=== PATIENT | female | born 1950 | race Caucasian/White ===

== ENCOUNTER → 2018-10-30 | Outpatient (CLI) | payer MEDICARE ==
[2018-10-30 17:13] LABS: Albumin 4.3 g/dL (3.80-4.90); Albumin/Globulin Ratio 2.26 (1.60-3.17); Anion Gap 11.4 mmol/L (4.00-12.00); Calcium 9.3 mg/dL (8.7-10.3); Carbon Dioxide 28.6 mmol/L (21.6-31.8); Globulin 1.9 g/dL (1.6-3.3); LDL Cholesterol,Calculated 118.6 mg/dL (0.0-131.0); Potassium 4.5 mmol/L (3.5-5.5); Total Bilirubin 0.4 mg/dL (0.2-1.2); Total Protein 6.2 g/dL (6.2-8.2); VLDL Calculation 30.4 mg/dL (5.00-40.00)
[2018-10-30 18:28] LABS: Thyroglobulin <0.20 ng/mL (1.60-59.90)
== END | disposition home or self-care (01) ==
LOC: LABWHC1 08:28
PROVIDERS: ATTEND Internal Medicine Endocrinology, Diabetes & Metabolism
DX: E11.65 Type 2 diabetes mellitus with hyperglycemia (principal); C73 Malignant neoplasm of thyroid gland
CPT/HCPCS: 36415; 80053; 80061; 82043; 82570; 84432; 84443; 86800

== ENCOUNTER → 2019-03-06 | Outpatient (CLI) | payer MEDICARE ==
[2019-03-06 16:46] LABS: African American GFR (CKD) 76.1 (60.0-200.0); Albumin 4.2 g/dL (3.80-4.90); Anion Gap 9.9 mmol/L (4.00-12.00); BUN/Creat Ratio 14.44 Ratio (12.00-20.00); Calcium 9.2 mg/dL (8.7-10.3); Carbon Dioxide 26.1 mmol/L (21.6-31.8); Globulin 2.1 g/dL (1.6-3.3); LDL Cholesterol,Calculated 105.8 mg/dL (0.0-131.0); Potassium 4.4 mmol/L (3.5-5.5); Total Bilirubin 0.4 mg/dL (0.3-1.2); Total Protein 6.3 g/dL (6.2-8.2); VLDL Calculation 39.2 mg/dL (5.00-40.00)
[2019-03-06 17:00] LABS: Hemoglobin A1C 7.2 % (4.0-6.0)
== END | disposition home or self-care (01) ==
LOC: LABWHC1 07:25
PROVIDERS: ATTEND Internal Medicine Endocrinology, Diabetes & Metabolism
DX: E11.65 Type 2 diabetes mellitus with hyperglycemia (principal); C73 Malignant neoplasm of thyroid gland
CPT/HCPCS: 36415; 80053; 80061; 82043; 82570; 83036; 84443

== ENCOUNTER → 2019-08-03 | Outpatient (CLI) | payer MEDICARE ==
[2019-08-03 15:14] LABS: Basophils # (A) 0.1 k/uL (0-0.2); Basophils % (A) 1 %; Eosinophils # (A) 0.2 k/uL (0-0.7); Eosinophils % (A) 3 %; HCT 42.3 % (34.0-46.0); HGB 14.4 gm/dL (11.4-16.0); Lymphocytes # (A) 1.3 k/uL (1.0-4.8); Lymphocytes % (A) 24 %; MCH 30.2 pg (25.0-35.0); MCHC 34.1 g/dL (31.0-37.0); MCV 88.7 fL (80.0-100.0); Mean Platelet Volume 8.3; Monocytes # (A) 0.3 k/uL (0-1.0); Monocytes % (A) 6 %; Neutrophils # (A) 3.5 k/uL (1.3-7.7); Neutrophils % (A) 64 %; Platelet Count 197 k/uL (150-450); RBC 4.77 m/uL (3.80-5.40); RDW 13.1 % (11.5-15.5); WBC 5.5 k/uL (3.8-10.6)
[2019-08-03 16:06] LABS: Erythrocyte Sedimentation Rate 13 mm/hr (0-20)
[2019-08-03 18:40] LABS: African American GFR (CKD) 76.1 (60.0-200.0); Albumin 4.3 g/dL (3.80-4.90); Albumin/Globulin Ratio 2.26 (1.60-3.17); Anion Gap 9.2 mmol/L (4.00-12.00); BUN/Creat Ratio 11.11 Ratio (12.00-20.00); C Reactive Protein 0.4 mg/dL (0.0-0.8); Carbon Dioxide 29.8 mmol/L (21.6-31.8); Globulin 1.9 g/dL (1.6-3.3); Potassium 4.4 mmol/L (3.5-5.5); Total Bilirubin 0.3 mg/dL (0.3-1.2); Total Protein 6.2 g/dL (6.2-8.2)
[2019-08-03 18:58] LABS: Cancer Antigen 19-9 44.2 U/mL (0.0-34.9)
[2019-08-03 19:21] LABS: Gliadin AB IgA, Deaminated NEGATIVE (NEGATIVE); Gliadin AB IgA, Unit <0.2 U/mL; Gliadin AB IgG, Deaminated NEGATIVE (NEGATIVE)
== END | disposition home or self-care (01) ==
LOC: LABWHC1 14:26
PROVIDERS: ATTEND Nurse Practitioner
DX: K52.9 Noninfective gastroenteritis and colitis, unspecified (principal); K86.2 Cyst of pancreas
CPT/HCPCS: 36415; 80053; 83516; 85025; 85652; 86140; 86301

== ENCOUNTER → 2019-08-20 | Outpatient (CLI) | payer MEDICARE ==
[2019-08-20 12:30] LABS: Albumin 4.2 g/dL (3.5-5.0); Calcium 9.3 mg/dL (8.4-10.2); Potassium 4.3 mmol/L (3.5-5.1); Total Bilirubin 0.6 mg/dL (0.2-1.3); Total Protein 6.8 g/dL (6.3-8.2)
--- NOTE | 2019-08-20 13:22 | US ---
EXAMINATION TYPE: US thyroid st tissue head/neck DATE OF EXAM: 08/20/2019 COMPARISON: NONE CLINICAL HISTORY: C73 MALIGNANT NEOPLASM OF THYROID GLAND. Total thyroidectomy with radiation 2013 pe r patient GLAND SIZE: Right Lobe: No thyroid tissue seen Left Lobe: No thyroid tissue seen Bilateral neck scanned: no evidence of lymphadenopathy. No suspicious recurrent tissue or adenopathy identified on images saved. IMPRESSION: As above.
[2019-08-20 22:33] LABS: Hemoglobin A1C 7.7 % (4.0-6.0)
== END | disposition home or self-care (01) ==
LOC: RADUSWWP 12:09
PROVIDERS: ATTEND Internal Medicine Endocrinology, Diabetes & Metabolism
DX: C73 Malignant neoplasm of thyroid gland (principal); E11.65 Type 2 diabetes mellitus with hyperglycemia; K76.89 Other specified diseases of liver
CPT/HCPCS: 36415; 76536; 80053; 80061; 82043; 82570; 83036; 84432; 84443; 86800

== ENCOUNTER → 2019-08-20 | Outpatient (CLI) | payer MEDICARE ==
--- NOTE | 2019-08-20 13:21 | US ---
EXAMINATION TYPE: US liver DATE OF EXAM: 08/20/2019 COMPARISON: NONE CLINICAL HISTORY: K76.89 LIVER CYST. Patient stated has elevated CA199 and fatty liver; prior thyroid CA too EXAM MEASUREMENTS: Liver Length: 14.80 cm Gallbladder Wall: 0.25 cm CBD: 0.40 cm Right Kidney: 9.8 x 5.0 x 5.3 cm Pancreas: hyperechoic with mid and tail obscured by overlying bowel gas Liver: Poor penetration due to large body habitus Gallbladder: non mobile shadowing stone =1.7 x 1.5 x 1.0cm Evidence for sonographic Strong's sign: no CBD: wnl Right Kidney: No hydronephrosis or masses seen Suboptimal evaluation of pancreas on images saved. Suboptimal evaluation of the liver. Visualized por tions are heterogeneously hyperechoic. Evaluation for focal masses suboptimal due to the heterogeneit y. Gallbladder is seen without shadowing gallstone. IMPRESSION: Suboptimal study with suspected diffuse fatty infiltration of liver. Gallstone without se condary ultrasound evidence for acute cholecystitis. If concern for focal intrahepatic masses further investigation with liver protocol contrast-enhanced CT or MRI would be advised
== END | disposition home or self-care (01) ==
LOC: RADUSWWP 12:07
PROVIDERS: ATTEND Internal Medicine Gastroenterology
DX: K80.20 Calculus of gallbladder without cholecystitis without obstruction (principal)
CPT/HCPCS: 76705

== ENCOUNTER → 2019-09-18 | Outpatient (CLI) | payer MEDICARE ==
--- NOTE | 2019-09-18 07:59 | US ---
EXAMINATION TYPE: US duplex aorta DATE OF EXAM: 09/18/2019 COMPARISON: NONE CLINICAL HISTORY: R93.1 ABN FINDINGS ON DIAGNOSTIC IMAGES OF HEART AND CORONAR. HT 5'5 and [id number] EXAM MEASUREMENTS: Abdominal Aorta: Proximal: 2.5cm both A/P and Transverse Mid: 1.8 by 1.9cm Transverse Distal: 1.6 by 2.1cm Transverse Bifurcation: not seen due to overlying bowel gas Slightly suboptimal study as the abdominal aorta is not successfully visualized through bifurcation. IMPRESSION: Visualized portion of the aorta shows no greater than 3.0 cm AAA.
== END | disposition home or self-care (01) ==
LOC: RADUSWWP 07:02
PROVIDERS: ATTEND Family Medicine
DX: I71.4 Abdominal aortic aneurysm, without rupture (principal)
CPT/HCPCS: 93979

== ENCOUNTER 2019-11-01 09:47 | Day surgery (SDC) | payer MEDICARE ==
--- NOTE | 2019-11-01 09:21 | P.GSHP ---
History of Present Illness H&P Date: 11/01/19 CHIEF COMPLAINT: Cholecystitis HISTORY OF PRESENT ILLNESS: The patient is a 69-year-old female who presents with history of epigastric including right upper quadrant abdominal pain. She underwent diagnostic studies for her gallbladder. Separately her clinical picture was consistent with cholecystitis. Now she presents for surgical intervention. PAST MEDICAL HISTORY: Please see list PAST SURGICAL HISTORY: Please see list MEDICATIONS: Please see list ALLERGIES: Please see list SOCIAL HISTORY: Please see list FAMILY HISTORY: Please see list REVIEW OF ORGAN SYSTEMS: Additionally reports: CONSTITUTIONAL: No fevers or chills. No recent weight loss. EYES: Denies any trouble with vision. No glasses. HEENT: No difficulties with hearing. No nosebleeds. No difficulty swallowing. RESPIRATORY: Denies pneumonia. Denies any troubles with breathing or dyspnea on exertion. CARDIOVASCULAR: Denies any chest pain, palpitations, or recent heart attacks. GASTROINTESTINAL: Denies fatty food intolerance. Has chronic diarrhea. GENITOURINARY: Denies any blood in urine or increased urinary frequency. NEUROLOGICAL: Denies any numbness or tingling along the distal extremities. No seizure disorders or headaches. MUSCULOSKELETAL: Denies any back pain, stiffness or joint arthritis. SKIN: No current skin cancer. No rash. PSYCHIATRIC: Denies current depression or suicidal thoughts. ENDOCRINE: Has thyroid disorders. Has blood sugar glucose intolerance. HEME/LYMPHATIC: Denies any lumps and bumps around the neck. No recent deep venous thrombosis. ALLERGY/IMMUNOLOGY: No immunoglobulin therapy. No immune deficiencies. BREAST: Denies current breast lumps, pain or nipple discharge. PHYSICAL EXAM: Patient is a 68-year-old female. CONSTITUTIONAL: Well developed and in no acute distress. Vitals reviewed. EYES: Conjuctivae without sclera icterus. Pupils are equally round and reactive to light. Extraocular movements grossly intact. HEAD, EARS, NOSE, THROAT: Moist buccal mucosa. Head is atraumatic, normocephalic. Hears conversational speech. No nasal drainage. NECK: Supple. No JV distention. No thyroidomegaly. RESPIRATORY: Non-labored respirations and equal bilateral excursions. No gross wheezes. CARDIOVASCULAR: Regular rate and rhythm. Extremities without moderate edema. Palpable 2+ radial pulses. LYMPH: No neck lymphadenopathy. No axillary lymphadenopathy. MUSCULOSKELETAL:Nail and fingers with good capillary refill. SKIN: Warm and well perfused with good skin turgor. NEUROLOGIC: Cranial nerves I through XII grossly intact. Sensation upper and extremities intact. No focal or lateralizing signs. PSYCH: Appropriate affect. Alert and oriented to person, place and time. Displays appropriate insight. Abdomen: Protuberant and soft. STUDIES: Ultrasound of the gallbladder independently reviewed demonstrating severe fatty liver disease including singular large gallstone. LABS: Hemoglobin A1C identified 7.7. ASSESSMENT: 1. Epigastric and right upper quadrant abdominal pain 2. Chronic cholecystitis 3. Symptomatic gallstones. PLAN: 1. Will need a robotic cholecystectomy possible open. Benefits and risks were described. 2. Heparin for DVT prophylaxis 5000 units. 3. Antibiotic prophylaxis. Past Medical History Past Medical History: Diabetes Mellitus, Pneumonia, Thyroid Disorder Additional Past Medical History / Comment(s): CURRENT: ABD PAIN, DIARRHEA, CONSTPATION History of Any Multi-Drug Resistant Organisms: None Reported Past Surgical History: Hysterectomy Additional Past Surgical History / Comment(s): 2013 TOTAL THYROIDECTOMY WITH RADIATION. Past Anesthesia/Blood Transfusion Reactions: No Reported Reaction, Family History of Problems w/ Anesthesia Additional Past Anesthesia/Blood Transfusion Reaction / Comment(s): PATIENT STATES HER SISTER IS HYPERALLERGIC TO ALL CHEMICALS AND ANESTHESIA. STATES HER SISTER IS CONFINED TO HER HOME DUE TO THE SENSITIVITIES. SHE DID NOT KNOW WHAT MALIGNANT HYPERTHERMIA. Past Psychological History: No Psychological Hx Reported Smoking Status: Current every day smoker Past Alcohol Use History: Rare Additional Past Alcohol Use History / Comment(s): 1PP WEEK. HAS SMOKED FOR 5 YRS. Past Drug Use History: None Reported - Past Family History Mother Family Medical History: Cancer Additional Family Medical History / Comment(s): LUNG CANCER Medications and Allergies Home Medications Medication Instructions Recorded Confirmed Type Cholecalciferol [Vitamin D3] 800 unit PO DAILY 10/30/19 10/30/19 History Dulaglutide [Trulicity] 1 dose SQ WE 10/30/19 10/30/19 History Insulin Glargine,Hum.rec.anlog 43 unit SQ HS 10/30/19 10/30/19 History [Toujeo Solostar] Levothyroxine Sodium [Synthroid] 100 mcg PO QAM 10/30/19 10/30/19 History Multivitamins, Thera [Multivitamin 1 tab PO DAILY 10/30/19 10/30/19 History (formulary)] Allergies Allergy/AdvReac Type Severity Reaction Status Date / Time Penicillins Allergy Swelling Verified 10/30/19 14:57
[~2019-11-01 09:47] MED LIST: CLINDAMYCIN 900 MG in DEXTROSE 5% IN WATER 50 ML IVPB ONE; GENTAMICIN 360 MG in SODIUM CHLORIDE 0.9% 100 ML IVPB ONE; HYDROmorphone 0.5 MG/0.5 ML SYRINGE IVP PRN; INDOCYANINE GREEN 25 MG VIAL IV STA; LIDOCAINE 1% 20 ML VIAL (10MG/ML) FOR IV START INTRADERMA PRN; MIDAZOLAM 2 MG/2 ML VIAL IV PRN; fentaNYL (PF) 50 MCG/ML 2 ML AMP IV PRN
[2019-11-01] MEDS: LACTATED RINGERS 1,000 ML IV SCH (11:15)
[2019-11-01 11:21] LABS: Glucose,Whole Blood 153 mg/dL (75-99)
[2019-11-01] MEDS: ACETAMINOPHEN TAB 500 MG TAB PO STA (11:37)
[2019-11-01] MEDS: GABAPENTIN 300 MG CAP PO STA (11:37)
[2019-11-01] MEDS: DEXAMETHASONE SOD PHOSPHATE 10 MG/ML 1 ML VIAL IV ONE (11:40)
[2019-11-01] MEDS: ONDANSETRON 4 MG/2 ML VIAL IVP ONE ×2 (11:40→16:43)
[2019-11-01] MEDS: HEPARIN SODIUM,PORCINE 5,000 UNIT/ML 1 ML VIAL SQ ONE (11:47)
[2019-11-01 11:56] LABS: Basophils # (A) 0.1 k/uL (0-0.2); Basophils % (A) 2 %; Eosinophils # (A) 0.1 k/uL (0-0.7); Eosinophils % (A) 2 %; HGB 14.6 gm/dL (11.4-16.0); Lymphocytes # (A) 1.2 k/uL (1.0-4.8); Lymphocytes % (A) 22 %; MCH 30.5 pg (25.0-35.0); MCHC 33.9 g/dL (31.0-37.0); Mean Platelet Volume 9.9; Monocytes # (A) 0.3 k/uL (0-1.0); Monocytes % (A) 5 %; Neutrophils # (A) 3.5 k/uL (1.3-7.7); Neutrophils % (A) 67 %; Platelet Count 179 k/uL (150-450); RBC 4.77 m/uL (3.80-5.40); RDW 12.9 % (11.5-15.5); WBC 5.2 k/uL (3.8-10.6)
[2019-11-01 12:04] LABS: ALT 19 U/L (4-34); AST 27 U/L (14-36); African American GFR (CKD) >90 (>60 ml/min/1.73 sqM); Albumin 3.9 g/dL (3.5-5.0); Alkaline Phosphatase 72 U/L (38-126); Anion Gap 8 mmol/L; Blood Urea Nitrogen 12 mg/dL (7-17); Calcium 9.1 mg/dL (8.4-10.2); Carbon Dioxide 25 mmol/L (22-30); Chloride 107 mmol/L (98-107); Glucose 154 mg/dL (74-99); Non-African American GFR(CKD) 89 (>60 ml/min/1.73 sqM); Potassium 4.7 mmol/L (3.5-5.1); Sodium 140 mmol/L (137-145); Total Bilirubin 0.6 mg/dL (0.2-1.3); Total Protein 6.7 g/dL (6.3-8.2)
[2019-11-01] MEDS ORDERED: MIDAZOLAM 2 MG/2 ML VIAL ONE (13:07)
[2019-11-01] MEDS ORDERED: GLYCOPYRROLATE 0.2 MG/ML 2 ML VIAL ONE (13:07)
[2019-11-01] MEDS ORDERED: ROCURONIUM BROMIDE 10 MG/ML 5 ML VIAL IV ONE (13:07)
[2019-11-01] MEDS ORDERED: fentaNYL (PF) 50 MCG/ML 2 ML AMP ONE (13:07)
[2019-11-01] MEDS ORDERED: LIDOCAINE 1% INJ 10MG/ML (20 ML MDV) ONE (13:07)
[2019-11-01] MEDS ORDERED: NEOSTIGMINE 1 MG/ML 10 ML VIAL ONE (13:07)
[2019-11-01] MEDS ORDERED: SUCCINYLCHOLINE CHLORIDE 100 MG/5 ML SYR IV ONE (13:07)
[2019-11-01] MEDS ORDERED: PROPOFOL 10 MG/ML 20 ML VIAL IV ONE (13:07)
[2019-11-01 13:11] LABS: Glucose,Whole Blood 133 mg/dL (75-99)
[2019-11-01] MEDS ORDERED: LIDOCAINE 1%-EPI 1:100,000 20 ML VIAL SQ ONE ×2 (13:36→13:48)
[2019-11-01] MEDS ORDERED: LACTATED RINGERS 1,000 ML IV ONE ×2 (14:48→18:47)
--- NOTE | 2019-11-01 15:59 | P.OP ---
Date of Procedure: 11/01/19 Description of Procedure: SURGEON: MAY DOUGLAS MD PREOPERATIVE DIAGNOSES: 1. Symptomatic gallstones 2. Fatty liver disease 3. Diabetes type 2, insulin-dependent 4. History of thyroid cancer 5. History of persistently elevated CA-19-9 6. Morbid obesity due to excess calories, BMI 35.9 POSTOPERATIVE DIAGNOSES: 1. Symptomatic gallstones 2. Fatty liver disease 3. Diabetes type 2, insulin-dependent 4. History of thyroid cancer 5. History of persistently elevated CA-19-9 6. Morbid obesity due to excess calories, BMI 35.9 7. Cystic lesion right inferior lateral lobe liver 2 x 3 cm, unknown malignant potential 8. Pericholecystic adhesions greater omentum to gallbladder 9. Hepatomegaly with fatty liver disease OPERATION: 1. Robotic-assisted da Dena Xi laparoscopic cholecystectomy, multiport with FIREFLY 1. Robotic-assisted da Dena Xi laparoscopic lysis of adhesions over 30 minutes ESTIMATED BLOOD LOSS: 20 mL. SPECIMENS REMOVED: Gallbladder. COMPLICATIONS: None. OPERATIVE FINDINGS: 1. Dense adhesions throughout the gallbladder body included infundibulum. 2. Cystic lesion with foci highly suspicious for metastatic disease 2 x 3 cm right inferior lateral border of gallbladder 3. Assess surgery duct of Luschka identified and clipped 4. Hepatomegaly with fatty liver disease 5. Console time 67 minutes INDICATIONS: The patient is a 69-year-old female who presents with cholelcystitis. Surgical intervention with a laparoscopic cholecystectomy was described at length including injury to the biliary tree, bleeding, infection, need for further surgery. Informed consent was obtained. Robotic assisted laparoscopic approach was described. Benefits and risks of the procedure including but not limited to bleeding, infection, injury to the biliary tree was described. Informed consent was obtained. DESCRIPTION OF PROCEDURE: Patient was brought to the operating room, placed in supine position. After general induction, the abdomen had been prepped and draped in standard sterile fashion. The robotic da Dena XI system was primed. After a timeout protocol was performed, the patient had been prepped and draped in standard sterile fashion. The patient was injected with indocyanine green. A 5 mm 0 degrees laparoscopic trocar entry was performed along the left upper quadrant. The abdomen insufflated to 15 mmHg pressure which was tolerated well. Diagnostic laparoscopy demonstrated no injury to bowel viscera or mesentery. The liver surface was unremarkable. Next, two 8 mm robotic ports were placed along the right upper abdomen. The camera 8-mm port was maintained along the epigastrium. Another 8 mm port was placed along the left upper abdominal wall after exchanging the 5 mm port. Please note that the ports were placed at least 10 to 15 cm away from the target anatomy of the gallbladder. The robot was docked along the left lateral abdomen. The patient was repositioned in reverse Trendelenburg position. Using a grasper for arm 3, a grasper for arm 4, including hook cautery for arm 1, the robotic system was docked and primed as described. Instruments were interchanged by the occupational therapist assistants including hook cautery, Bovie cautery and clip appliers. I had sat at the console. Dense peritoneal adhesions gallbladder to the infundibulum was identified securing the view of the gallbladder. Lysis of adhesions using hook cautery over 30 minutes was used to free the gallbladder from surrounding tissue. At the right inferior lateral aspect to the gallbladder cystic lesion of at least 2 x 3 cm with a foci of questionable metastatic disease was identified. Separately, dense adhesions about the infundibulum was found. A dome down technique for cholecystectomy was performed to avoid injuries to the cystic structures. Once freed the gallbladder fundus was maneuvered. The common bile duct was visualized using indocyanine green and appeared somewhat dilated. The gallbladder fundus was retracted over the dome of the liver. Attention was brought to the infundibulum which was gently retracted in the inferior lateral approach. Using a grasper, the cystic duct was carefully skeletonized. FIREFLY was used to identify the cystic artery and cystic structures. A critical view of safety was obtained. Large PLASTIC clips were used throughout the entire case. Using a clip patient account specialist 2 clips were placed proximally, and 1 clip was placed between the infundibulum and cystic duct and divided using cautery. Next, the cystic artery was similarly clipped and cauterized. An accessary duct of Luschka was identified with bile emanating from the lumen and clipped. Electro-Bovie cautery was used to remove the gallbladder from the hepatic fossa. Hemostasis was checked and found to be adequate. The robot was undocked. I re-scrubbed into the case. Using a 10 mm Endo Catch bag via the left upper quadrant incision, the specimen was removed from the abdominal cavity. All pneumoperitoneum instruments were evacuated from the abdominal cavity. The incisions were reapproximated using 4-0 Monocryl in an interrupted subcuticular fashion. Fascial defects were less than 8 mm in size. Please note along the trocar sites, local anesthetic was placed as a field block prior to insertion of all instruments. Liquid glue was applied to the skin. At the end of the procedure needle, sponge, and instrument count had been verified correct by the chemical laboratory technician. The patient was transferred to postanesthesia care unit in stable condition. Intraoperative films were shared with the patient's family who were very pleased with the level of care. With findings of liver lesion, additional workup including tumor markers were sent with additional results of gallbladder pathology pending. Plan - Discharge Summary Discharge Rx Participant: No New Discharge Prescriptions: No Action Multivitamins, Thera [Multivitamin (formulary)] 1 tab PO DAILY Cholecalciferol [Vitamin D3] 800 unit PO DAILY Insulin Glargine,Hum.rec.anlog [Toujeo Solostar] 31 unit SQ HS Dulaglutide [Trulicity] 1 dose SQ WE Levothyroxine Sodium [Synthroid] 100 mcg PO QAM Discharge Medication List Cholecalciferol [Vitamin D3] 800 unit PO DAILY 10/30/19 [History] Dulaglutide [Trulicity] 1 dose SQ WE 10/30/19 [History] Insulin Glargine,Hum.rec.anlog [Toujeo Solostar] 31 unit SQ HS 10/30/19 [History] Levothyroxine Sodium [Synthroid] 100 mcg PO QAM 10/30/19 [History] Multivitamins, Thera [Multivitamin (formulary)] 1 tab PO DAILY 10/30/19 [History] Follow up Appointment(s)/Referral(s): May Douglas MD [STAFF PHYSICIAN] - 11/06/19 Patient Instructions/Handouts: Laparoscopic Cholecystectomy (DC) Activity/Diet/Wound Care/Special Instructions: No lifting over 10 pounds in 2 weeks until Nov 15. May shower. No bath tub soaks for two weeks until Nov 15 Diet as tolerated. Use Tylenol and ibuprofen or Aleve scheduled for the next 24-48 hours for best pain relief. Use ice along incisions for the today to prevent swelling. Discharge Disposition: HOME SELF-CARE
[2019-11-01 16:31] LABS: Glucose,Whole Blood 214 mg/dL (75-99)
[2019-11-01] MEDS ORDERED: INSULIN ASPART (NovoLOG) 100 UNIT/ML VIAL SQ ONE (16:43)
[2019-11-01] MEDS ORDERED: SIMETHICONE 40 MG/0.6 ML DROPS 2,000 MG/30 ML BOTTLE PO ONE (17:29)
[2019-11-01 17:39] LABS: Glucose,Whole Blood 217 mg/dL (75-99)
[2019-11-01 18:35] LABS: Carcinoembryonic Antigen 2.2 ng/mL (0.0-4.9)
[2019-11-01 19:03] LABS: Alpha Fetoprotein, Tumor Mkr <2.5 ng/mL (0.0-7.9)
[2019-11-01 19:04] LABS: Cancer Antigen 19-9 47.1 U/mL (0.0-34.9)
[2019-11-01] MEDS ORDERED: NALOXONE 0.4 MG/ML 1 ML VIAL IV PRN (19:09)
[2019-11-01] MEDS ORDERED: METOCLOPRAMIDE 5 MG/ML 2 ML VIAL IVP PRN (19:09)
[2019-11-01] MEDS ORDERED: ACETAMINOPHEN TAB 325 MG TAB PO PRN (19:09)
--- NOTE | 2019-11-01 19:26 | P.PN ---
Progress Note - Text Progress Note Date: 11/01/19 Notified by recovery that patient has moderate to severe generalized weakness. Overnight observation requested per anesthesia.
[2019-11-01 20:39] LABS: Glucose,Whole Blood 227 mg/dL (75-99)
[2019-11-01] MEDS ORDERED: INSULIN DETEMIR (LEVEMIR) 100 UNIT/ML SYR SQ SCH (21:00)
[2019-11-01] MEDS: BENZOCAINE/MENTHOL LOZENG 1 EACH LOZENGE MUCOUS MEM PRN (21:43)
[2019-11-01] MEDS: KETOROLAC 30 MG/ML 1 ML VIAL IVP SCH (21:44)
[2019-11-01 22:57] VITALS: RESP 18
[2019-11-02] MEDS: HEPARIN SODIUM,PORCINE 5,000 UNIT/ML 1 ML VIAL SQ ONE (00:30)
[2019-11-02] MEDS: ACETAMINOPHEN TAB 500 MG TAB PO STA (00:31)
[2019-11-02] MEDS: DEXAMETHASONE SOD PHOSPHATE 10 MG/ML 1 ML VIAL IV ONE (00:31)
[2019-11-02] MEDS: GABAPENTIN 300 MG CAP PO STA (00:32)
[2019-11-02 00:52] LABS: Glucose,Whole Blood 158 mg/dL (75-99)
[2019-11-02] MEDS: INSULIN ASPART (NovoLOG) 100 UNIT/ML VIAL SQ SCH ×2 (01:21→05:49)
[2019-11-02] MEDS: KETOROLAC 30 MG/ML 1 ML VIAL IVP SCH ×2 (01:21→11:25)
[2019-11-02] MEDS: LACTATED RINGERS 1,000 ML IV SCH (05:47)
[2019-11-02 05:51] LABS: Glucose,Whole Blood 126 mg/dL (75-99)
[2019-11-02] MEDS: BENZOCAINE/MENTHOL LOZENG 1 EACH LOZENGE MUCOUS MEM PRN (05:56)
[2019-11-02] MEDS ORDERED: LEVOTHYROXINE 100 MCG TAB PO SCH (06:30)
[2019-11-02 06:55] LABS: Glucose,Whole Blood 120 mg/dL (75-99)
[2019-11-02 08:18] LABS: Albumin 3.5 g/dL (3.5-5.0); Calcium 8.8 mg/dL (8.4-10.2); Magnesium 1.7 mg/dL (1.6-2.3); Potassium 4.6 mmol/L (3.5-5.1); Total Bilirubin 0.7 mg/dL (0.2-1.3); Total Protein 6.1 g/dL (6.3-8.2)
--- NOTE | 2019-11-02 09:17 | P.DS ---
Providers Expected date of discharge: 11/02/19 Attending physician: May Douglas Primary care physician: Raghu Arenas Hospital Course: 69-year-old female who underwent robotic-assisted laparoscopic cholecystectomy and lysis of adhesions with Dr. Douglas on 11/01/2019. Patient was having some gait instability and weakness postoperatively and was admitted overnight for observation. Patient reports she is ambulating this morning without difficulty. She reports no further weakness. Pain is controlled on oral medications. Vital signs are stable. She is tolerating diet. She is stable for discharge home today. Please see EMR for further hospital course details. Discharge Diagnosis 1. Symptomatic gallstones 2. Fatty liver disease 3. Diabetes type 2, insulin-dependent 4. History of thyroid cancer 5. History of persistently elevated CA-19-9 6. Morbid obesity due to excess calories, BMI 35.9 7. Cystic lesion right inferior lateral lobe liver 2 x 3 cm, unknown malignant potential 8. Pericholecystic adhesions greater omentum to gallbladder 9. Hepatomegaly with fatty liver disease Nurse practitioner note has been reviewed by physician. Signing provider agrees with the documented findings, assessment, and plan of care. Plan - Discharge Summary Discharge Rx Participant: No New Discharge Prescriptions: New Naproxen 500 mg PO Q6HR PRN #20 tablet PRN Reason: Pain Acetaminophen Tab [Tylenol Tab] 1,000 mg PO Q6HR PRN #30 tablet Continue Multivitamins, Thera [Multivitamin (formulary)] 1 tab PO DAILY Cholecalciferol [Vitamin D3] 800 unit PO DAILY Insulin Glargine,Hum.rec.anlog [Jan Solostsaroj] 31 unit SQ HS Dulaglutide [Trulicity] 1 dose SQ WE Levothyroxine Sodium [Synthroid] 100 mcg PO QAM Discharge Medication List Cholecalciferol [Vitamin D3] 800 unit PO DAILY 10/30/19 [History] Dulaglutide [Trulicity] 1 dose SQ WE 10/30/19 [History] Insulin Glargine,Hum.rec.anlog [Toujeo Solostar] 31 unit SQ HS 10/30/19 [History] Levothyroxine Sodium [Synthroid] 100 mcg PO QAM 10/30/19 [History] Multivitamins, Thera [Multivitamin (formulary)] 1 tab PO DAILY 10/30/19 [History] Acetaminophen Tab [Tylenol Tab] 1,000 mg PO Q6HR PRN #30 tablet 11/01/19 [Rx] Naproxen 500 mg PO Q6HR PRN #20 tablet 11/01/19 [Rx] Follow up Appointment(s)/Referral(s): May Douglas MD [STAFF PHYSICIAN] - 11/06/19 (PLEASE CALL FOR APPOINTMENT TIME. OFFICE CLOSED AT TIME OF DISCHARGE) Patient Instructions/Handouts: *Surgery [facility] - (Anesthesia) Discharge Instructions Outpatient Surgery, Laparoscopic Cholecystectomy (DC) Activity/Diet/Wound Care/Special Instructions: No lifting over 10 pounds in 2 weeks until Nov 15. May shower. No bath tub soaks for two weeks until Nov 15 Diet as tolerated. Use Tylenol and ibuprofen or Aleve scheduled for the next 24-48 hours for best pain relief. Use ice along incisions for the today to prevent swelling. Discharge Disposition: HOME SELF-CARE
[2019-11-02 10:05] VITALS: BP 136/61; PULSE 78; TEMP 98.4
[2019-11-07] MEDS ORDERED: DULAGLUTIDE SQ SCH (12:00)
== END 2019-11-02 11:16 | disposition home or self-care (01) ==
LOC: OR 09:47 → 4SSUR 18:29 → OR 11-02 11:16
PROVIDERS: ATTEND Surgery Plastic and Reconstructive Surgery
DX: K80.12 Calculus of gallbladder with acute and chronic cholecystitis without obstruction (principal); K66.0 Peritoneal adhesions (postprocedural) (postinfection); E11.9 Type 2 diabetes mellitus without complications; E07.9 Disorder of thyroid, unspecified; Z90.710 Acquired absence of both cervix and uterus; E89.0 Postprocedural hypothyroidism; Z92.3 Personal history of irradiation; F17.210 Nicotine dependence, cigarettes, uncomplicated; K76.89 Other specified diseases of liver; K76.0 Fatty (change of) liver, not elsewhere classified; Z85.850 Personal history of malignant neoplasm of thyroid; R97.8 Other abnormal tumor markers; E66.01 Morbid (severe) obesity due to excess calories; Z68.35 Body mass index [BMI] 35.0-35.9, adult; Z80.1 Family history of malignant neoplasm of trachea, bronchus and lung; Z79.890 Hormone replacement therapy; Z79.4 Long term (current) use of insulin; Z79.899 Other long term (current) drug therapy; Z88.0 Allergy status to penicillin
CPT/HCPCS: 88304; 80053 ×2; 86304; 82378; 83735; 85025; 82105; 86301; 47562; 49329; J2250; J1644; J1100; J2710; J2405; J2001; J3010; J1885 ×2; J1580; J0330; J2704

== ENCOUNTER → 2019-11-13 | Outpatient (CLI) | payer MEDICARE ==
[2019-11-13 13:47] LABS: ALT 23 U/L (4-34); AST 27 U/L (14-36); African American GFR (CKD) >90 (>60 ml/min/1.73 sqM); Albumin 4.4 g/dL (3.5-5.0); Alkaline Phosphatase 89 U/L (38-126); Anion Gap 12 mmol/L; Blood Urea Nitrogen 12 mg/dL (7-17); Calcium 9.3 mg/dL (8.4-10.2); Carbon Dioxide 26 mmol/L (22-30); Chloride 105 mmol/L (98-107); Glucose 174 mg/dL (74-99); Non-African American GFR(CKD) 85 (>60 ml/min/1.73 sqM); Potassium 4.4 mmol/L (3.5-5.1); Sodium 143 mmol/L (137-145); Total Bilirubin 0.3 mg/dL (0.2-1.3); Total Protein 7.7 g/dL (6.3-8.2)
--- NOTE | 2019-11-14 13:26 | CT ---
EXAMINATION TYPE: CT abdomen pelvis w con DATE OF EXAM: 11/13/2019 COMPARISON: NONE HISTORY: 69-year-old female diverticulitis of intestine TECHNIQUE: Contiguous axial scanning of the abdomen and pelvis following administration of 100 ml Iso riley 300 IV contrast. Delayed images through the kidneys and coronal/sagittal reconstructions perform ed. CT DLP: 1677 mGycm Automated exposure control for dose reduction was used. FINDINGS: Heart is normal size without pericardial effusion. Lung bases clear without pleural effusion. The liver is borderline enlarged at 17.7 cm. Scattered subcentimeter cysts are present. However, sarah beth tional multilocular cystic areas are present, approximately 3 dominant such lesions within the right liver lobe measuring up to 3.4 cm. Portal venous system is patent. No biliary ductal dilatation. Gallbladder surgically absent. Adrenal glands, right kidney, spleen, and pancreas appear within normal limits. A benign 2.6 cm cortical cyst lateral upper pole left kidney. Moderate atherosclerotic calcifications throughout the abdominal aorta without aneurysm. No dilated small bowel, free fluid, or free air. No mesenteric or retroperitoneal lymphadenopathy. Normal appendix. There is moderate stool burden. Some mild circumferential wall thickening along segm ents of the transverse colon. Proximal to mid sigmoid diverticulosis. Redundant sigmoid colon. No per icolonic inflammatory change. Some mildly prominent fluid-filled small bowel loops in the lower abdomen and pelvis. Bladder is urine distended. Uterus surgically absent. Both ovaries are visualized. Tubal ligation cli ps are noted. No abnormal fluid collection in the pelvis or pelvic lymphadenopathy seen. Bones: Hypertrophic facet arthropathy lower lumbar spine with grade 1 anterolisthesis at L4-L5. IMPRESSION: 1. MODERATE STOOL BURDEN AND REDUNDANT SIGMOID COLON WITH PROXIMAL TO MID SIGMOID DIVERTICULOSIS. NO EVIDENCE FOR ACUTE DIVERTICULITIS. 2. SEGMENTS OF MILD CIRCUMFERENTIAL WALL THICKENING ALONG THE TRANSVERSE COLON. ADDITIONALLY, SOME SC OMINENT FLUID-FILLED SMALL BOWEL LOOPS IN LOWER ABDOMEN AND PELVIS. CORRELATE FOR POSSIBLE MILD ENTER OCOLITIS. 3. MULTILOCULAR CYSTIC LESIONS IN THE RIGHT LIVER LOBE, APPROXIMATELY 3 DOMINANT SUCH LESIONS MEASURI NG UP TO 3.4 CM. INCIDENTAL COMPLEX CYSTS ARE POSSIBLE. NO SURROUNDING PARENCHYMAL HYPEREMIA TO HELP SUPPORT LIVER ABSCESSES. CLINICALLY CORRELATE. THE MULTIPLICITY ARGUES AGAINST BILIARY CYSTADENOMA. 3 -6 MONTH FOLLOW-UP CAN BE PERFORMED TO REASSESS.
== END | disposition home or self-care (01) ==
LOC: RADCTMAIN 12:32
PROVIDERS: ATTEND Surgery Plastic and Reconstructive Surgery
DX: K57.30 Diverticulosis of large intestine without perforation or abscess without bleeding (principal); K63.89 Other specified diseases of intestine; K76.89 Other specified diseases of liver; R79.89 Other specified abnormal findings of blood chemistry
CPT/HCPCS: 80053; 74177; 36415; Q9967

== ENCOUNTER 2019-11-26 08:56 | Day surgery (SDC) | payer MEDICARE ==
[2019-11-26] MEDS ORDERED: ALPRAZolam 0.25 MG TAB PO STA (09:45)
[2019-11-26 09:53] LABS: Mean Platelet Volume 9.7; Platelet Count 200 k/uL (150-450)
[2019-11-26 10:02] LABS: INR 0.9 (<1.2); Prothrombin Time 9.8 sec (9.0-12.0)
[2019-11-26 10:33] VITALS: BP 134/74; PULSE 74; RESP 18; TEMP 98
--- NOTE | 2019-11-26 11:39 | US ---
Discontinued liver biopsy in interventional radiology consult history: Liver mass Comparison to prior CT 11/13/2019. Following discussion with the patient, patient describes abnormality upper tumor marker dating severa l years prior. Patient also notes that previous abdominal CT imaging has been performed at an outside institution. Real-time ultrasound does not show patient's previous identified CT abnormalities. Physical exam shows a patient in no apparent distress. Abdomen is nontender and soft, scars are noted from prior cholecystectomy. IMPRESSION: No liver biopsy to be performed at this time. Following review of patient's prior imaging and comparison to recent exam performed at this institution, additional recommendation to be perform ed. Patient is in agreement with the plan.
== END 2019-11-26 10:45 | disposition home or self-care (01) ==
LOC: RADPROMAIN 08:56
PROVIDERS: ATTEND Surgery Plastic and Reconstructive Surgery
DX: K76.89 Other specified diseases of liver (principal); Z53.8 Procedure and treatment not carried out for other reasons; Z88.0 Allergy status to penicillin; Z88.8 Allergy status to other drugs, medicaments and biological substances
CPT/HCPCS: 36415; 76705; 82947; 85049; 85610

== ENCOUNTER → 2020-02-28 | Outpatient (CLI) | payer MEDICARE | END | disposition home or self-care (01) | LOC: RADMAMWWP 11:06 | PROVIDERS: ATTEND Family Medicine | DX: Z53.9 Procedure and treatment not carried out, unspecified reason (principal) ==

== ENCOUNTER → 2020-02-28 | Outpatient (CLI) | payer MEDICARE ==
[2020-02-28 12:21] LABS: African American GFR (CKD) >90 (>60 ml/min/1.73 sqM); Blood Urea Nitrogen 13 mg/dL (7-17); Non-African American GFR(CKD) 88 (>60 ml/min/1.73 sqM)
--- NOTE | 2020-02-28 14:03 | CT ---
EXAMINATION TYPE: CT abdomen pelvis w con DATE OF EXAM: 02/28/2020 COMPARISON: 11/13/2019 and 03/10/2012 HISTORY: 69-year-old female other specified diseases of liver, K76.89, followup abnormal prior ct TECHNIQUE: Contiguous axial scanning of the abdomen and pelvis following administration of 100 ml Iso riley 300 IV contrast. Delayed images through the kidneys and coronal/sagittal reconstructions perform ed. CT DLP: 1750.3 mGycm Automated exposure control for dose reduction was used. FINDINGS: Heart normal size without pericardial effusion. Coronary artery calcifications are present along with mitral annular calcifications. Strandy atelectasis or scarring at the lung bases. Liver enlarged at 19.2 cm. Redemonstrated multiple hypodense lesions, the largest showing a complex, multilocular or septated appearance measuring up to 4.0 cm posterior inferior right liver lobe but ma ny very small and subcentimeter. These show no interval change from 11/13/2019 over the course of appr oximately 4 months. Portal venous system is patent. No biliary ductal dilatation. Gallbladder surgically absent. Adrenal glands and right kidney, spleen, and pancreas appear within normal limits. A 2.8 cm lateral left renal cyst may be minimally larger from 2.6 cm, previously. No dilated small bowel, free fluid, or free air. No mesenteric or retroperitoneal lymphadenopathy. Moderate arthroscopic calcifications of the abdominal aorta without aneurysm. Normal appendix. Oral contrast progressed to the hepatic flexure. There is moderate stool burden. Pro ximal to mid sigmoid diverticulosis. No pericolonic inflammatory change. Bladder partially distended. Bilateral tubal ligation clips and small ovaries are visualized. Pelvic phleboliths. Uterus surgically absent. Pelvic floor relaxation. No abnormal fluid collection in the p aviva or pelvic lymphadenopathy. Bones: Mild degenerative change in both hips. Hypertrophic facet arthropathy especially lower lumbar spine with grade 1 anterolisthesis L4-L5. IMPRESSION: 1. STABLE MULTIPLE HYPODENSE LESIONS WITHIN THE LIVER, THE LARGEST OF WHICH HAVE A COMPLEX, MULTILOCU LAR OR SEPTATED APPEARANCE MEASURING UP TO 4 CM BUT MANY BEING VERY SMALL AND SUBCENTIMETER. STABILIT Y BACK TO EVEN 2011 SUGGESTS A BENIGN ETIOLOGY, LIKELY MULTIPLE HEPATIC CYSTS. 2. SIGMOID DIVERTICULOSIS AND PELVIC FLOOR RELAXATION.
== END | disposition home or self-care (01) ==
LOC: RADCTMAIN 11:39
PROVIDERS: ATTEND Family Medicine
DX: K57.30 Diverticulosis of large intestine without perforation or abscess without bleeding (principal)
CPT/HCPCS: 82565; 84520; 74177; 36415; Q9967

== ENCOUNTER 2020-05-07 06:30 | Day surgery (SDC) | payer MEDICARE ==
[2020-05-05 10:46] VITALS: BMI 34.9
[~2020-05-07 06:30] MED LIST changes: -CLINDAMYCIN 900 MG in DEXTROSE 5% IN WATER 50 ML IVPB ONE; -GENTAMICIN 360 MG in SODIUM CHLORIDE 0.9% 100 ML IVPB ONE; -HYDROmorphone 0.5 MG/0.5 ML SYRINGE IVP PRN; -INDOCYANINE GREEN 25 MG VIAL IV STA; +LACTATED RINGERS 1,000 ML IV SCH; -LIDOCAINE 1% 20 ML VIAL (10MG/ML) FOR IV START INTRADERMA PRN; -MIDAZOLAM 2 MG/2 ML VIAL IV PRN; -fentaNYL (PF) 50 MCG/ML 2 ML AMP IV PRN
[2020-05-07] MEDS ORDERED: LIDOCAINE 1% (10MG/ML) FOR IV START INTRADERMA ONE (07:05)
[2020-05-07] MEDS ORDERED: LACTATED RINGERS 1,000 ML IV ONE (07:05)
[2020-05-07 07:13] LABS: Glucose,Whole Blood 172 mg/dL (75-99)
[2020-05-07] MEDS ORDERED: PROPOFOL 10 MG/ML 20 ML VIAL IV ONE (08:01)
[2020-05-07 08:10] VITALS: TEMP 97.8
--- NOTE | 2020-05-07 08:24 | P.PCN ---
Date of Procedure: 05/07/20 Procedure(s) Performed: BRIEF HISTORY: Patient is a 69-year-old pleasant female scheduled for an elective colonoscopy as a part of screening for colorectal neoplasia. PROCEDURE PERFORMED: Colonoscopy with snare polypectomy and biopsy. PREOPERATIVE DIAGNOSIS: Sreening for colon cancer. IV sedation per Anesthesia. PROCEDURE: After informed consent was obtained, the patient, was brought into the endoscopy unit. IV sedation was administered by Anesthesia under continuous monitoring. Digital rectal examination was normal. Initially the Olympus CF-160 flexible video colonoscope was then inserted in the rectum, gradually advanced into the cecum without any difficulty. Careful examination was performed as the scope was gradually being withdrawn. Ileocecal valve and the appendiceal orifice were visualized and appeared normal. Prep was excellent. Mucosa of the cecum, appeared normal. In the ascending colon there was a 3 mm sessile polyp that was removed by cold biopsy. In the descending colon there was a 7 mm polyp that was removed by snare polypectomy. In the sigmoid colon there was a 6 mm polyp removed by snare polypectomy and in the proximal rectum there was a 5 mm polyp removed by snare polypectomy. Rest of the ascending colon, transverse colon, descending colon, sigmoid colon, and rectum appeared normal. Retroflexion was performed in the rectum and no lesions were seen. The patient tolerated the procedure well. IMPRESSION: 3 mm sessile ascending colon polyp status post removal by cold biopsy 7 mm descending colon polyp status post snare polypectomy 5-6 mm; sigmoid polyp status post polypectomy 5 mm rectal polyp status post polypectomy RECOMMENDATIONS: Findings of this examination were discussed with the patient as well as her family. She was advised to follow with the biopsy result. If the biopsy shows an adenoma she can have a repeat colonoscopy in 3 years.
[2020-05-07 08:27] VITALS: RESP 16
[2020-05-07 08:37] VITALS: BP 135/74; PULSE 68
== END 2020-05-07 08:54 ==
LOC: ORWHC2ENDO 06:30
PROVIDERS: ATTEND Internal Medicine Gastroenterology
DX: Z12.11 Encounter for screening for malignant neoplasm of colon (principal); D12.2 Benign neoplasm of ascending colon; D12.5 Benign neoplasm of sigmoid colon; D12.8 Benign neoplasm of rectum; E11.9 Type 2 diabetes mellitus without complications; G47.33 Obstructive sleep apnea (adult) (pediatric); E89.0 Postprocedural hypothyroidism; F17.210 Nicotine dependence, cigarettes, uncomplicated; Z88.8 Allergy status to other drugs, medicaments and biological substances; Z88.0 Allergy status to penicillin; Z79.890 Hormone replacement therapy; Z79.4 Long term (current) use of insulin; Z91.19 Patient's noncompliance with other medical treatment and regimen; Z90.49 Acquired absence of other specified parts of digestive tract; Z90.710 Acquired absence of both cervix and uterus; Z86.69 Personal history of other diseases of the nervous system and sense organs; Z98.890 Other specified postprocedural states
CPT/HCPCS: 88305; 45380; 45385; J2704

== ENCOUNTER → 2020-08-04 | Outpatient (CLI) | payer MEDICARE ==
[2020-08-04 18:45] LABS: African American GFR (CKD) 66.6 (60.0-200.0); Albumin 4.5 g/dL (3.80-4.90); Albumin/Globulin Ratio 2.05 (1.60-3.17); Anion Gap 7.1 mmol/L (4.00-12.00); Calcium 9.7 mg/dL (8.7-10.3); Carbon Dioxide 31.9 mmol/L (21.6-31.8); Chol/HDL Ratio 5.16; Globulin 2.2 g/dL (1.6-3.3); LDL Cholesterol,Calculated 148.2 mg/dL (0.0-131.0); Non-African American GFR(CKD) 57.4 (60.0-200.0); Potassium 4.6 mmol/L (3.5-5.5); Total Bilirubin 0.5 mg/dL (0.3-1.2); Total Protein 6.7 g/dL (6.2-8.2); VLDL Calculation 30.8 mg/dL (5.00-40.00)
[2020-08-04 20:46] LABS: Hemoglobin A1C 10.2 % (4.0-6.0)
[2020-08-05 01:00] LABS: Urine Creatinine 193.2 mg/dL
== END | disposition home or self-care (01) ==
LOC: LABWHC1 10:42
PROVIDERS: ATTEND Internal Medicine Endocrinology, Diabetes & Metabolism
DX: C73 Malignant neoplasm of thyroid gland (principal); E11.65 Type 2 diabetes mellitus with hyperglycemia
CPT/HCPCS: 36415; 80053; 80061; 82043; 82570; 83036; 84432; 84443; 86800

== ENCOUNTER → 2020-09-08 | Outpatient (CLI) | payer MEDICARE ==
--- NOTE | 2020-09-08 08:46 | BD ---
EXAMINATION TYPE: Axial Bone Density DATE OF EXAM: 09/08/2020 COMPARISON: NONE CLINICAL HISTORY: Height: 64 Weight: 217.3 FRAX RISK QUESTIONS: Alcohol (3 or more units per day): no Family History (Parent hip fracture): no Glucocorticoids (More than 3mos): no (Ex: prednisone, prednisolone, methylprednisolone, dexamethasone, and hydrocortisone). History of Fracture in Adulthood: no Secondary Osteoporosis: 1. Type 1 Diabetes: no 2. Hyperthyroidism: no 3. Menopause before 45: yes 4. Malnutrition: no 5. Chronic liver disease: yes Rheumatoid Arthritis: no Current Tobacco Use: yes RISK FACTORS HISTORY OF: Family History of Osteoporosis: no Active: yes Diet low in dairy products/other sources of calcium: no Postmenopausal woman: early age 40 Lost more than 2 inches in height since high school: no MEDICATIONS: cholesterol meds , diabetic meds Thyroid Medications: synthroid How Lon years Additional History: pt has had thyroid cancer EXAM MEASUREMENTS: Bone mineral densitometry was performed using the [employer] System. Bone mineral density as measured about the Lumbar spine is: ----- L1-L4(G/cm2): 1.058 T Score Values are as follows: ----- L2: -1.4 ----- L3: -1.4 ----- L4: -0.2 ----- L1-L4: -1.0 Bone mineral density : baseline Bone mineral density about the R hip (g/cm2): 0.826 Bone mineral density about the L hip (g/cm2): 0.950 T Score values are as follows: -----R Neck: -1.5 -----L Neck: -0.6 -----R Total: -0.9 -----L Total: -0.3 Bone mineral density : baseline IMPRESSION: No evidence for osteoporosis or osteopenia. NOTE: T-SCORE=SD OF THE YOUNG ADULT MEAN.
== END | disposition home or self-care (01) ==
LOC: RADBDWWP 07:00
PROVIDERS: ATTEND Family Medicine
DX: Z78.0 Asymptomatic menopausal state (principal)
CPT/HCPCS: 77080

== ENCOUNTER → 2020-10-20 | Outpatient (CLI) | payer MEDICARE ==
--- NOTE | 2020-10-24 12:15 | MM ---
Reason for exam: screening (asymptomatic). Last mammogram was performed 9 years and 11 months ago. History: Patient is postmenopausal, history of colon cancer, and history of other cancer. Benign stereotactic core biopsy of the right breast, October 31, 1998. Core biopsy of the right breast. Physical Findings: A clinical breast exam by your physician is recommended on an annual basis and results should be correlated with mammographic findings. MG 3D Screening Mammo W/Cad Bilateral CC and MLO view(s) were taken. Prior study comparison: April 28, 2017, mammogram, performed at [facility]. August 27, 2016, mammogram, performed at [facility]. August 11, 2016, mammogram, performed at [facility]. There are scattered fibroglandular densities. There are benign appearing round calcifications bilaterally. Previous mammotome biopsy in the right breast. Asymmetric breast tissue left posterior breast, stable. There is no discrete abnormality. Benign bilateral axillary lymph nodes redemonstrated. ASSESSMENT: Benign, BI-RAD 2 RECOMMENDATION: Routine screening mammogram of both breasts in 1 year.
== END | disposition home or self-care (01) ==
LOC: RADMAMWWP 07:54
PROVIDERS: ATTEND Family Medicine
DX: Z12.31 Encounter for screening mammogram for malignant neoplasm of breast (principal)
CPT/HCPCS: 77063; 77067

== ENCOUNTER → 2020-11-19 | Outpatient (CLI) | payer MEDICARE ==
[2020-11-19 09:29] LABS: ALT 28 U/L (4-34); AST 30 U/L (14-36); African American GFR (CKD) >90 (>60 ml/min/1.73 sqM); Albumin 4.2 g/dL (3.5-5.0); Alkaline Phosphatase 65 U/L (38-126); Anion Gap 7 mmol/L; Blood Urea Nitrogen 17 mg/dL (7-17); Calcium 9.5 mg/dL (8.4-10.2); Carbon Dioxide 32 mmol/L (22-30); Chloride 101 mmol/L (98-107); Cholesterol 201 mg/dL (<200); Glucose 247 mg/dL (74-99); HDL Cholesterol 37 mg/dL (40-60); LDL Cholesterol,Calculated 129 mg/dL (0-99); Non-African American GFR(CKD) 88 (>60 ml/min/1.73 sqM); Potassium 4.9 mmol/L (3.5-5.1); Sodium 140 mmol/L (137-145); Total Bilirubin 0.6 mg/dL (0.2-1.3); Triglycerides 177 mg/dL (<150)
--- NOTE | 2020-11-19 09:38 | US ---
EXAMINATION TYPE: US thyroid st tissue head/neck DATE OF EXAM: 11/19/2020 COMPARISON: US 08/20/19 CLINICAL HISTORY: 70-year-old female C73 Malignant neoplasm of thyroid. Thyroid surgically excised du e to thyroid cancer. TECHNIQUE: Multiple sonographic images of the thyroid gland are obtained. FINDINGS: GLAND SIZE: Right Lobe Not seen Left Lobe not seen. NODULES RIGHT: # of nodules measured on right: 0 LEFT: # of nodules measured on left: 0 ISTHMUS: # of nodules measured in the isthmus: 0 Beam Sealer notes: Bilateral neck scanned, no evidence of lymphadenopathy. No thyroid tissue seen IMPRESSION: No residual or abnormal tissue identified within the thyroidectomy bed.
[2020-11-19 15:26] LABS: Urine Creatinine 197.3 mg/dL
[2020-11-19 19:05] LABS: Hemoglobin A1C 9.9 % (4.0-6.0)
== END ==
LOC: RADUSWWP 07:37
PROVIDERS: ATTEND Internal Medicine Endocrinology, Diabetes & Metabolism
DX: C73 Malignant neoplasm of thyroid gland (principal); E11.65 Type 2 diabetes mellitus with hyperglycemia
CPT/HCPCS: 76536; 80053; 80061; 82043; 82570; 83036; 84432; 84443; 86800

== ENCOUNTER → 2021-03-14 | Outpatient (CLI) | payer MEDICARE ==
[2021-03-14 12:39] LABS: African American GFR (CKD) 75.1 (60.0-200.0); Albumin 4.4 g/dL (3.80-4.90); Albumin/Globulin Ratio 1.91 (1.60-3.17); Anion Gap 6.2 mmol/L (4.00-12.00); BUN/Creat Ratio 16.67 Ratio (12.00-20.00); Calcium 9.7 mg/dL (8.7-10.3); Carbon Dioxide 31.8 mmol/L (21.6-31.8); Globulin 2.3 g/dL (1.6-3.3); Non-African American GFR(CKD) 64.8 (60.0-200.0); Total Bilirubin 0.4 mg/dL (0.2-1.2); Total Protein 6.7 g/dL (6.2-8.2)
[2021-03-14 12:40] LABS: Chol/HDL Ratio 5.41; LDL Cholesterol,Calculated 134.2 mg/dL (0.0-131.0); VLDL Calculation 37.8 mg/dL (5.00-40.00)
[2021-03-14 13:52] LABS: Hemoglobin A1C 9.4 % (4.0-6.0)
== END | disposition home or self-care (01) ==
LOC: LABWHC1 08:20
PROVIDERS: ATTEND Internal Medicine Endocrinology, Diabetes & Metabolism
DX: C73 Malignant neoplasm of thyroid gland (principal); E11.65 Type 2 diabetes mellitus with hyperglycemia
CPT/HCPCS: 36415; 80053; 80061; 83036; 84443

== ENCOUNTER → 2021-07-06 | Outpatient (CLI) | payer MEDICARE ==
[2021-07-06 17:54] LABS: African American GFR (CKD) 75.3 (60.0-200.0); Albumin 4.4 g/dL (3.8-4.9); Albumin/Globulin Ratio 1.85 (1.60-3.17); Anion Gap 14.3 mmol/L (4.00-12.00); BUN/Creat Ratio 10.24 Ratio (12.00-20.00); Blood Urea Nitrogen 9.2 mg/dL (9.0-27.0); Calcium 9.6 mg/dL (8.7-10.3); Carbon Dioxide 25.1 mmol/L (21.6-31.8); Chol/HDL Ratio 5.1 Ratio; Globulin 2.4 g/dL (1.6-3.3); HDL Cholesterol 44.1 mg/dL (40.00-60.00); LDL Cholesterol,Calculated 147.5 mg/dL (0.0-131.0); Potassium 4.2 mmol/L (3.5-5.5); Total Bilirubin 0.3 mg/dL (0.30-1.20); Total Protein 6.8 g/dL (6.2-8.2); VLDL Calculation 33.4 mg/dL (5.00-40.00)
== END | disposition home or self-care (01) ==
LOC: LABWHC1 10:15
PROVIDERS: ATTEND Internal Medicine Endocrinology, Diabetes & Metabolism
DX: C73 Malignant neoplasm of thyroid gland (principal); E11.65 Type 2 diabetes mellitus with hyperglycemia
CPT/HCPCS: 36415; 80053; 80061; 82043; 82570; 84432; 84443; 86800

== ENCOUNTER → 2021-09-03 | Outpatient (CLI) | payer MEDICARE | END | disposition home or self-care (01) | LOC: LABWHC1 14:29 | PROVIDERS: ATTEND Family Medicine | DX: R00.2 Palpitations (principal) | CPT/HCPCS: 36415; 93005 ==

== ENCOUNTER → 2021-10-23 | Outpatient (CLI) | payer MEDICARE ==
[2021-10-23 15:30] LABS: ALT 29 U/L (8-44); AST 24 U/L (13-35); African American GFR (CKD) 71.5 (60.0-200.0); Albumin 4.2 g/dL (3.8-4.9); Albumin/Globulin Ratio 1.55 (1.60-3.17); Alkaline Phosphatase 65 U/L (41-126); BUN/Creat Ratio 10.94 Ratio (12.00-20.00); Blood Urea Nitrogen 10.2 mg/dL (9.0-27.0); Calcium 9.7 mg/dL (8.7-10.3); Carbon Dioxide 24.4 mmol/L (20.0-27.5); Chloride 106 mmol/L (96-109); Chol/HDL Ratio 4.36 Ratio; Globulin 2.7 g/dL (1.6-3.3); Glucose 259 mg/dL (70-110); LDL Cholesterol,Calculated 106.3 mg/dL (0.0-131.0); Non-African American GFR(CKD) 61.7 (60.0-200.0); Potassium 4.7 mmol/L (3.5-5.5); Sodium 142 mmol/L (135-145); Total Bilirubin <0.20 mg/dL (0.30-1.20)
== END | disposition home or self-care (01) ==
LOC: LABWHC1 08:17
PROVIDERS: ATTEND Internal Medicine Endocrinology, Diabetes & Metabolism
DX: C73 Malignant neoplasm of thyroid gland (principal); E11.65 Type 2 diabetes mellitus with hyperglycemia
CPT/HCPCS: 36415; 80053; 80061; 83036; 84432; 84443; 86800

== ENCOUNTER → 2021-12-09 | Outpatient (CLI) | payer MEDICARE ==
--- NOTE | 2021-12-09 11:20 | US ---
EXAMINATION TYPE: US abdomen complete DATE OF EXAM: 12/09/2021 COMPARISON: CT & US CLINICAL HISTORY: K76.89 DISEASE OF LIVER. Abnormal prior CT, liver disease, GB removed EXAM MEASUREMENTS: Liver Length: 18.5 cm CBD: 0.6 cm Spleen: 8.6 cm Right Kidney: 11.2 x 4.4 x 5.0 cm Left Kidney: 10.9 x 6.1 x 4.7 cm Morbidly obese pt, difficult to scan/visualize Pancreas: obscured by overlying bowel gas Liver: Upper limits of normal for size, difficult to penetrate, lesions visualized on CT could not b e appreciated by ultrasound due to large pt body habitus and pt unable to tolerate probe pressure Gallbladder: Surgically absent Evidence for sonographic Strong's sign: No CBD: wnl Spleen: wnl Right Kidney: Upper pole gassed out, otherwise appeared wnl Left Kidney: Cyst upper pole= 3.6 x 2.5 x 2.8 cm, no evidence of hydro, lower pole gassed out Upper IVC: difficult to visualize due to large pt body habitus Abd Aorta: obscured by overlying bowel gas, and large pt body habitus IMPRESSION: Technically difficult ultrasound. Enlarged liver with hyperechoic parenchyma suggestive of hepatic st eatosis. The described lesions on the previous CT scan are not appreciated by this limited ultrasound . Further MRI assessment can be considered. Simple left renal cyst without suspicious feature.
== END | disposition home or self-care (01) ==
LOC: RADUSWWP 10:24
PROVIDERS: ATTEND Family Medicine
DX: R16.0 Hepatomegaly, not elsewhere classified (principal); N28.1 Cyst of kidney, acquired; K76.89 Other specified diseases of liver
CPT/HCPCS: 76700

== ENCOUNTER → 2022-01-08 | Outpatient (CLI) | payer MEDICARE ==
--- NOTE | 2022-01-11 11:23 | MM ---
Reason for exam: screening (asymptomatic). Last mammogram was performed 1 year and 3 months ago. History: Patient is postmenopausal and history of other cancer. Benign stereotactic core biopsy of the right breast, October 31, 1998. Core biopsy of the right breast. Physical Findings: A clinical breast exam by your physician is recommended on an annual basis and results should be correlated with mammographic findings. MG 3D Screening Mammo W/Cad Bilateral CC and MLO view(s) were taken. Prior study comparison: October 20, 2020, bilateral MG 3d screening mammo w/cad. April 28, 2017, mammogram, performed at [facility]. There are scattered fibroglandular densities. Previous mammotome biopsy in the right breast. No significant changes when compared with prior studies. ASSESSMENT: Benign, BI-RAD 2 RECOMMENDATION: Routine screening mammogram of both breasts in 1 year.
== END | disposition home or self-care (01) ==
LOC: RADMAMWWP 13:22
PROVIDERS: ATTEND Family Medicine
DX: Z12.31 Encounter for screening mammogram for malignant neoplasm of breast (principal); Z78.0 Asymptomatic menopausal state
CPT/HCPCS: 77063; 77067

== ENCOUNTER → 2022-02-27 | Outpatient (CLI) | payer MEDICARE ==
[2022-02-27 16:40] LABS: ALT 24 U/L (8-44); AST 22 U/L (13-35); African American GFR (CKD) 66.7 (60.0-200.0); Albumin 4.4 g/dL (3.8-4.9); Albumin/Globulin Ratio 1.88 (1.60-3.17); Alkaline Phosphatase 65 U/L (41-126); BUN/Creat Ratio 12.56 Ratio (12.00-20.00); Blood Urea Nitrogen 12.4 mg/dL (9.0-27.0); Calcium 9.7 mg/dL (8.7-10.3); Carbon Dioxide 26.9 mmol/L (20.0-27.5); Chloride 106 mmol/L (96-109); Chol/HDL Ratio 3.85 Ratio; Globulin 2.3 g/dL (1.6-3.3); Glucose 90 mg/dL (70-110); LDL Cholesterol,Calculated 86.7 mg/dL (0.0-131.0); Non-African American GFR(CKD) 57.5 (60.0-200.0); Potassium 4.7 mmol/L (3.5-5.5); Sodium 143 mmol/L (135-145); Total Protein 6.7 g/dL (6.2-8.2)
== END | disposition home or self-care (01) ==
LOC: LABWHC1 10:34
PROVIDERS: ATTEND Internal Medicine Endocrinology, Diabetes & Metabolism
DX: C73 Malignant neoplasm of thyroid gland (principal); E11.65 Type 2 diabetes mellitus with hyperglycemia
CPT/HCPCS: 36415; 80053; 80061; 83036; 84432; 84443; 86800

== ENCOUNTER 2022-05-03 17:17 | Emergency (ER) | payer MEDICARE ==
[2022-05-03 17:20] VITALS: PULSE 87; TEMP 98.1
--- NOTE | 2022-05-03 17:31 | ED ---
General Adult HPI - General Chief complaint: Fall Stated complaint: fall, back injury Time Seen by Provider: 05/03/22 17:20 Source: patient, EMS, RN notes reviewed Mode of arrival: EMS Limitations: no limitations - History of Present Illness Initial comments: Patient is a pleasant 71-year-old female presenting to the emergency department with concerns with low back pain. Patient did have surgery 4 days ago. He should had lumbar fusion. Patient was discharged afternoon. Patient was going home and walking up a step she fell back. Patient landed on her lower back. Patient complains of increased lower back discomfort since that time. Patient did receive pain medication by EMS and symptoms are mild at this time. No loss of control of bowel or bladder. No weakness or loss of sensation. No other area of injury or concern. No head injury or loss of consciousness. - Related Data Home Medications Medication Instructions Recorded Confirmed Insulin Glargine,Hum.rec.anlog 48 unit SQ HS 10/30/19 03/30/21 [[place] Solostar] Multivitamins, Thera [Multivitamin 1 tab PO DAILY 10/30/19 03/30/21 (formulary)] Lactobacillus Acidophilus 1 each PO DAILY 11/15/19 03/30/21 [Acidophilus] Levothyroxine Sodium [Synthroid] 150 mcg PO DAILY 11/15/19 03/30/21 Ascorbic Acid [Vitamin C] 500 mg PO DAILY 05/05/20 03/30/21 Cholecalciferol [Vitamin D3 (25 2,000 unit PO DAILY 05/05/20 03/30/21 Mcg = 1000 Iu)] Zinc 50 mg PO DAILY 05/05/20 03/30/21 Insulin Aspart [NovoLOG] 20 units SQ AC-TID 03/30/21 03/30/21 Allergies Allergy/AdvReac Type Severity Reaction Status Date / Time Penicillins Allergy Swelling Verified 08/25/21 09:10 Review of Systems ROS Statement: Those systems with pertinent positive or pertinent negative responses have been documented in the HPI. ROS Other: All systems not noted in ROS Statement are negative. Constitutional: Denies: fever Eyes: Denies: eye pain ENT: Denies: ear pain Respiratory: Denies: cough Cardiovascular: Denies: chest pain Endocrine: Denies: fatigue Gastrointestinal: Denies: abdominal pain Genitourinary: Denies: dysuria Musculoskeletal: Reports: as per HPI Skin: Denies: rash Neurological: Denies: headache, weakness, numbness, paresthesias, confusion Past Medical History Past Medical History: Cancer, Diabetes Mellitus, Eye Disorder, Hearing Disorder / Deafness, Hyperlipidemia, Liver Disease, Thyroid Disorder Additional Past Medical History / Comment(s): Bilateral Cataracts, hearing loss left ear. Hx thyroid cancer with thyroidectomy and radiation, cysts on liver, non alcoholic fatty liver. History of Any Multi-Drug Resistant Organisms: None Reported Past Surgical History: Cholecystectomy, Hysterectomy, Orthopedic Surgery Additional Past Surgical History / Comment(s): Partial hysterctomy, right carpal tunnel surgery. Past Anesthesia/Blood Transfusion Reactions: Previous Problems w/ Anesthesia Additional Past Anesthesia/Blood Transfusion Reaction / Comment(s): Weakness, dizziness and unsteady gait post anesthesia. "sister allergic to alot of medications cannot have surgery" Smoking Status: Current every day smoker - Past Family History Father Family Medical History: Coronary Artery Disease (CAD), CVA/TIA, Myocardial Infarction ([place]) Additional Family Medical History / Comment(s): Heart surgery. Brain Tumor, non cancerous. Mother Family Medical History: Cancer Additional Family Medical History / Comment(s): Lung Disorder. General Exam Limitations: no limitations General appearance: alert, in no apparent distress Head exam: Present: atraumatic, normocephalic Eye exam: Present: normal appearance Neck exam: Present: normal inspection. Absent: tenderness Respiratory exam: Present: normal lung sounds bilaterally Cardiovascular Exam: Present: regular rate, normal rhythm Expanded Peripheral pulses: 2+: Dorsalis Pedis (R), Dorsalis Pedis (L) GI/Abdominal exam: Present: soft. Absent: distended, tenderness Extremities exam: Present: normal inspection. Absent: tenderness Back exam: Present: tenderness (Mild tenderness L3-L4 region midline) Neurological exam: Present: alert. Absent: motor sensory deficit Expanded Sensory exam: Lower Extremity Light Touch: Normal Motor strength exam: RLE: 5, LLE: 5 Psychiatric exam: Present: normal affect, normal mood Skin exam: Present: normal color Course Vital Signs 05/03/22 17:17 Temperature 98.1 F Pulse Rate 87 Respiratory 16 Rate Blood Pressure 174/61 O2 Sat by Pulse 91 L Oximetry Medical Decision Making - Medical Decision Making Patient reevaluated and updated. Patient states pain is fairly well controlled however is agreeable to a small dose of pain medication prior to discharge. - Radiology Data Radiology results: image reviewed (Lumbar films reveal no acute process) Disposition Clinical Impression: Fall, Lumbar contusion Disposition: HOME SELF-CARE Condition: Stable Instructions (If sedation given, give patient instructions): Fall Prevention (ED) Additional Instructions: Please call your back doctor tomorrow. Copy of x-rays provided. Please follow- up with back doctor and primary care physician in the next couple days for recheck. Return for weakness, loss of control of bowel or bladder, loss of sensation, worsening symptoms or other concerns. Is patient prescribed a controlled substance at d/c from ED?: No Referrals: Raghu Arenas MD [Primary Care Provider] - 1-2 days Time of Disposition: 18:39
--- NOTE | 2022-05-03 17:56 | XR ---
EXAMINATION TYPE: XR lumbar spine 2 or 3V DATE OF EXAM: 05/03/2022 COMPARISON: 09/22/2021 HISTORY: Fall. Postop. Pain. TECHNIQUE: FINDINGS: There is posterior rods and screws fusing the lumbar spine from L3 to S1. There is a mild t horacolumbar levoscoliosis. There is multilevel laminectomy defect. No compression fracture. No sublu xation. Sacroiliac joints are intact. Abdominal aorta is atheromatous. IMPRESSION: Posterior fusion surgery. There is some improvement in the subluxation deformity at L4-5 compared to the old exam. No fracture seen.
[2022-05-03] MEDS ORDERED: HYDROmorphone 0.5 MG/0.5 ML SYRINGE IVP STA (18:39)
[2022-05-03 18:57] VITALS: BP 169/62; RESP 18
== END 2022-05-03 19:35 | disposition home or self-care (01) ==
LOC: EC 17:17
DX: S30.0XXA Contusion of lower back and pelvis, initial encounter (principal); E11.9 Type 2 diabetes mellitus without complications; E78.5 Hyperlipidemia, unspecified; E07.9 Disorder of thyroid, unspecified; F17.200 Nicotine dependence, unspecified, uncomplicated; Z88.0 Allergy status to penicillin; Z79.4 Long term (current) use of insulin; Z79.899 Other long term (current) drug therapy; W01.0XXA Fall on same level from slipping, tripping and stumbling without subsequent striking against object, initial encounter; Y93.89 Activity, other specified
CPT/HCPCS: 72100; 99283; 96374; J1170

== ENCOUNTER → 2022-12-13 | Outpatient (CLI) | payer MEDICARE ==
[2022-12-13 14:46] LABS: ALT 18 U/L (8-44); AST 16 U/L (13-35); Albumin 4.3 g/dL (3.8-4.9); Albumin/Globulin Ratio 1.87 (1.60-3.17); Alkaline Phosphatase 80 U/L (41-126); BUN/Creat Ratio 16.67 Ratio (12.00-20.00); Calcium 9.7 mg/dL (8.7-10.3); Carbon Dioxide 26.4 mmol/L (20.0-27.5); Chloride 106 mmol/L (96-109); Chol/HDL Ratio 3.41 Ratio; Globulin 2.3 g/dL (1.6-3.3); Glucose 116 mg/dL (70-110); LDL Cholesterol,Calculated 86.5 mg/dL (0.0-131.0); Non-African American GFR(CKD) 63.9 (60.0-200.0); Potassium 4.6 mmol/L (3.5-5.5); Sodium 146 mmol/L (135-145); Total Protein 6.6 g/dL (6.2-8.2)
[2022-12-13 16:25] LABS: Basophils # (A) 0.04 X 10*3/uL (0.00-0.10); Basophils % (A) 0.7 %; Eosinophils # (A) 0.17 X 10*3/uL (0.04-0.35); Eosinophils % (A) 2.8 %; HCT 44.1 % (37.2-46.3); HGB 13.6 g/dL (12.0-15.0); Immature Grans, Automated 0.3 %; Lymphocytes # (A) 1.38 X 10*3/uL (0.90-5.00); Lymphocytes % (A) 22.9 %; MCH 28.6 pg (27.0-32.0); MCHC 30.8 g/dL (32.0-37.0); MCV 92.6 fL (80.0-97.0); Mean Platelet Volume 12.9 fL (9.5-12.2); Monocytes # (A) 0.37 X 10*3/uL (0.20-1.00); Monocytes % (A) 6.1 %; NRBC Per 100 WBC 0 /100 WBCS (0.0-0.0); Neutrophils # (A) 4.04 X 10*3/uL (1.80-7.70); Neutrophils % (A) 67.2 %; Platelet Count 190 X 10*3/uL (140-440); RBC 4.76 X 10*6/uL (4.10-5.20); RDW 12.9 % (11.5-14.5); WBC 6.02 X 10*3/uL (4.50-10.00)
[2022-12-13 19:47] LABS: Microalbumin Creatinine Ratio <30 mg/g Creat (0-30)
== END | disposition home or self-care (01) ==
LOC: LABWHC1 09:04
PROVIDERS: ATTEND Family Medicine
DX: C73 Malignant neoplasm of thyroid gland (principal); E11.65 Type 2 diabetes mellitus with hyperglycemia; E03.9 Hypothyroidism, unspecified
CPT/HCPCS: 36415; 80053; 80061; 82043; 82570; 83036; 84432; 84439; 84443; 84481; 85025; 86800

== ENCOUNTER → 2022-12-22 | Outpatient (CLI) | payer MEDICARE ==
--- NOTE | 2022-12-22 10:45 | XR ---
EXAMINATION TYPE: XR chest 2V DATE OF EXAM: 12/22/2022 COMPARISON: None INDICATION: Myalgia, left-sided pain from fall TECHNIQUE: Frontal and lateral views of the chest are obtained. FINDINGS: The heart size is normal. The pulmonary vasculature is normal. Some atelectatic type changes are at the left lung base. No pneumothorax is evident. No displaced fra ctures are identified.. IMPRESSION: 1. Atelectatic type changes left lung base. 2. No acute posttraumatic changes evident
== END | disposition home or self-care (01) ==
LOC: RADXRMAIN 10:07
PROVIDERS: ATTEND Family Medicine
DX: J98.11 Atelectasis (principal); M79.18 Myalgia, other site
CPT/HCPCS: 71046

== ENCOUNTER → 2023-03-14 | Outpatient (CLI) | payer MEDICARE ==
--- NOTE | 2023-03-14 12:10 | BD ---
EXAMINATION TYPE: Axial Bone Density DATE OF EXAM: 03/14/2023 CLINICAL HISTORY: 72 years old Female. ICD-10 CODE: Z78.0 MENOPAUSAL STATE Height: 63.5in Weight: 228lb FRAX RISK QUESTIONS: Secondary Osteoporosis: 3. Menopause before 45: yes 5. Chronic liver disease: yes Current Tobacco Use: yes RISK FACTORS HISTORY OF: Surgery to Spine: yes, lumbar fusion When: 2021 Family History of Osteoporosis: no Active: moderate Postmenopausal woman: yes Frequent falls: a couple falls since Poor Health: fair MEDICATIONS: Thyroid Medications: Which medication: Synthroid How Long: over 10 years Additional Medications: diabetic med, cholesterol meds, calcium with vitamin d Additional History: Type II diabetes, fatty liver, history of thyroid cancer EXAM MEASUREMENTS: Bone mineral densitometry was performed using the [employer] System. Bone mineral density about the R hip (g/cm2): 0.870 Bone mineral density about the L hip (g/cm2): 0.899 T Score values are as follows: -----R Neck: -1.5 -----L Neck: -1.5 -----R Total: -1.1 -----L Total: -0.9 Z Score values are as follows: -----R Neck: -0.5 -----L Neck: -0.5 -----R Total: -0.3 -----L Total: -0.1 Bone mineral density has: Decreased -4.9% since study of: 09-08-20 FRAX%s: The graph provided illustrates a 9.8% chance for a major osteoporotic fx and a 2.5% chance fo r the hips probability for fx in 10 years time. IMPRESSION: Osteopenia (T Score between -2.5 and -1). There is slightly increased risk of fracture and the patient may be considered for treatment. Re-Screen 2-5 years. NOTE: T-SCORE=SD OF THE YOUNG ADULT MEAN.
--- NOTE | 2023-03-15 08:46 | MM ---
Reason for Exam: Screening (asymptomatic). Last mammogram was performed 1 year(s) and 2 month(s) ago. Patient History: Menarche at age 12. First Full-Term at age 28. Hysterectomy at age 39. Postmenopausal. Core Biopsy on the Right side. 10/31/1998, Benign Stereotactic Core Biopsy on the right side. Risk Values: Karly 5 year model risk: 2.9%. NCI Lifetime model risk: 7.5%. Prior Study Comparison: 04/28/2017 Scre[facility], [facility]. 10/20/2020 Bilateral Screening Mammogram, [facility]. 01/08/2022 Bilateral Screening Mammogram, [facility]. Tissue Density: There are scattered fibroglandular densities. Findings: Analyzed By CAD. There is no suspicious group of microcalcifications or new suspicious mass in either breast. Overall Assessment: Negative, BI-RAD 1 Management: Screening Mammogram of both breasts in [address] [facility] will attempt to contact patient to return for supplemental views and ultrasound if indicated. Patient should continue monthly self-breast exams. A clinical breast exam by your physician is recommended on an annual basis. This exam should not preclude additional follow-up of suspicious palpable abnormalities. Note on Karly scores and lifetime risk: 1. A Karly score greater than 3% is considered moderate risk. If this is the case, consider specialist referral to assess eligibility for a risk reducing agent. 2. If overall lifetime risk for the development of breast cancer is 20% or higher, the patient may qualify for future screening with alternating mammogram and breast MRI. Electronically signed and approved by: Gabe Carter DO
== END | disposition home or self-care (01) ==
LOC: RADMAMWWP 02-23 09:27
PROVIDERS: ATTEND Family Medicine
DX: Z12.31 Encounter for screening mammogram for malignant neoplasm of breast (principal); M85.89 Other specified disorders of bone density and structure, multiple sites; Z78.0 Asymptomatic menopausal state
CPT/HCPCS: 77063; 77067; 77080

== ENCOUNTER → 2023-08-30 | Outpatient (CLI) | payer MEDICARE ==
--- NOTE | 2023-08-30 20:21 | XR ---
EXAMINATION TYPE: XR chest 2V DATE OF EXAM: 08/30/2023 COMPARISON: 12/22/2022 HISTORY: 72-year-old female Z77.120 CONTACT WITH AND (SUSPECTED) EXPOSURE TO MOLD TECHNIQUE: Frontal and lateral views FINDINGS: Heart and lungs are normal in size. Redemonstrated low lung volumes with crowded vascular markings. P atchy left basilar opacity likely atelectasis. No new consolidation or pleural effusion is seen. IMPRESSION: Chronic changes with hypoventilatory changes and either scarring or atelectasis at the left base. No acute change seen.
== END | disposition home or self-care (01) ==
LOC: RADXRMAIN 15:36
PROVIDERS: ATTEND Family Medicine
DX: J98.11 Atelectasis (principal); R06.89 Other abnormalities of breathing; Z77.120 Contact with and (suspected) exposure to mold (toxic)
CPT/HCPCS: 71046

== ENCOUNTER → 2023-09-14 | Outpatient (CLI) | payer MEDICARE ==
[2023-09-15 12:38] LABS: Alt. alternata IgE Class CLASS 0; Alternaria alternata IgE <0.10 kU/L (<0.10); Asperg. fumagatus IgE <0.10 kU/L (<0.10); Asperg. fumagatus IgE Class CLASS 0; Candida albicans IgE Class CLASS 0; Clad herbarum IgE <0.10 kU/L (<0.10); Clad herbarum IgE Class CLASS 0; Mucor racemosus IgE <0.10 kU/L (<0.10); Mucor racemosus IgE Class CLASS 0; Penicillium chrysogenum IgE <0.10 kU/L (<0.10); Penicillium chrysogenum IgE Cl CLASS 0
== END | disposition home or self-care (01) ==
LOC: LABWHC1 14:34
PROVIDERS: ATTEND Family Medicine
DX: Z77.120 Contact with and (suspected) exposure to mold (toxic) (principal)
CPT/HCPCS: 36415; 86003

== ENCOUNTER → 2024-02-04 | Outpatient (CLI) | payer MEDICARE ==
[2024-02-04 13:45] LABS: Basophils # (A) 0.07 X 10*3/uL (0.00-0.10); Basophils % (A) 1.4 %; Eosinophils # (A) 0.14 X 10*3/uL (0.04-0.35); Eosinophils % (A) 2.8 %; HCT 49.2 % (37.2-46.3); HGB 15.2 g/dL (12.0-15.0); Lymphocytes # (A) 1.13 X 10*3/uL (0.90-5.00); MCH 30.1 pg (27.0-32.0); MCHC 30.9 g/dL (32.0-37.0); MCV 97.4 FL (80.0-97.0); Mean Platelet Volume 12.3 FL (9.5-12.2); Monocytes # (A) 0.38 X 10*3/uL (0.20-1.00); Monocytes % (A) 7.7 %; NRBC Per 100 WBC 0 X 10*3/uL (0.00-0.01); Neutrophils # (A) 3.19 X 10*3/uL (1.80-7.70); Neutrophils % (A) 64.9 %; Platelet Count 154 X 10*3/uL (140-440); RBC 5.05 X 10*6/uL (4.10-5.20); RDW 12.7 % (11.5-14.5); WBC 4.92 X 10*3/uL (4.50-10.00)
[2024-02-04 15:31] LABS: ALT 15 U/L (8-44); AST 22 U/L (13-35); Albumin 4.2 g/dL (3.8-4.9); Albumin/Globulin Ratio 1.83 Ratio (1.60-3.17); Alkaline Phosphatase 76 U/L (41-126); BUN/Creat Ratio 12.67 Ratio (12.00-20.00); Blood Urea Nitrogen 11.4 mg/dL (9.0-27.0); Calcium 9.7 mg/dL (8.7-10.3); Chloride 105 mmol/L (96-109); Chol/HDL Ratio 3.08 Ratio; Globulin 2.3 g/dL (1.6-3.3); Glucose 164 mg/dL (70-110); LDL Cholesterol,Calculated 63.6 mg/dL (0.0-131.0); Potassium 4.5 mmol/L (3.5-5.5); Sodium 141 mmol/L (135-145); Total Bilirubin 0.3 mg/dL (0.3-1.2); Total Protein 6.5 g/dL (6.2-8.2)
== END | disposition home or self-care (01) ==
LOC: LABWHC1 09:45
PROVIDERS: ATTEND Family Medicine
DX: E11.65 Type 2 diabetes mellitus with hyperglycemia (principal)
CPT/HCPCS: 36415; 80053; 80061; 82043; 82570; 83036; 85025

== ENCOUNTER → 2024-02-07 | Outpatient (CLI) | payer MEDICARE ==
--- NOTE | 2024-02-07 08:47 | US ---
EXAMINATION TYPE: US duplex aorta DATE OF EXAM: 02/07/2024 COMPARISON: NONE CLINICAL INDICATION: Female, 73 years old with history of Z13.6 SCREENING FOR CARDIOVASCULAR DISORDER ; screening TECHNIQUE: Multiple sonographic images of the abdominal aorta are obtained. FINDINGS: EXAM MEASUREMENTS: Abdominal Aorta: Proximal: 2.5x2.1 Mid: 1.6x1.6 Distal: 1.3x1.4 Bifurcation: Right Iliac: 0.8x1.0 Left Iliac: 0.6x0.7 LAN SUPPORT SPECIALIST NOTES: no evidence for AAA, plaque noted throughout. Exam limited by bowel gas and body habitus IMPRESSION: No evidence for aortic aneurysm.
== END | disposition home or self-care (01) ==
LOC: RADUSWWP 08:15
PROVIDERS: ATTEND Family Medicine
DX: Z13.6 Encounter for screening for cardiovascular disorders (principal)
CPT/HCPCS: 76706

== ENCOUNTER → 2024-07-27 | Outpatient (CLI) | payer MEDICARE ==
--- NOTE | 2024-07-27 15:41 | XR ---
Lumbar spine HISTORY: Back pain and right-sided sciatica. COMPARISON: 09/22/2021. TECHNIQUE: 5 views of lumbar spine were obtained. FINDINGS: There are postsurgical changes of metallic and bony fusion from L3 through S1. There is a wide left n ephrectomy as well. The lumbar vertebral segments are normal in height and alignment and there is no fracture. There is mild narrowing of the L4-5 disc space indicating mild degenerative disc disease 2. Diffuse calcification of abdominal aorta without evidence of aneurysm. IMPRESSION: 1. Extensive postsurgical changes from L3 through S1. 2. Mild degenerative disc disease L4-5 level. 3. No acute lumbar spine fracture or malalignment. [facility], Workstation: RO, 07/27/2024 3:38 PM
== END | disposition home or self-care (01) ==
LOC: RADXRMAIN 14:16
PROVIDERS: ATTEND Family Medicine
DX: M51.360 Other intervertebral disc degeneration, lumbar region with discogenic back pain only (principal)
CPT/HCPCS: 72110

== ENCOUNTER 2024-08-14 10:54 | Emergency (ER) | payer MEDICARE ==
[2024-08-14 11:02] VITALS: TEMP 98.4
--- NOTE | 2024-08-14 11:50 | ED ---
Lower Extremity Injury HPI - General Chief Complaint: Extremity Injury, Lower Stated Complaint: R leg pain/unable to walk Time Seen by Provider: 08/14/24 11:10 Source: patient, RN notes reviewed Mode of arrival: wheelchair Limitations: no limitations - History of Present Illness Initial Comments: This is a 73-year-old female presenting to the emergency department chief complaint of right lower extremity pain. Patient states that over the past few weeks she has been evaluated outpatient by her primary care provider for this pain. Patient underwent x-ray imaging of her right hip and pelvis due to sciatic nerve irritation. States that she has a MRI ordered but has not been scheduled for this imaging. Patient states that the pain starts of her right posterior hip and radiates into the front of her thigh into the mid thigh. She denies loss of bladder bowel continence or saddle anesthesias. Patient had previous surgery of her lumbar spine. With acute complaints at this time. she has pain medication that she has been taking at home with relief. - Related Data Home Medications Medication Instructions Recorded Confirmed Insulin Glargine,Hum.rec.anlog 45 unit SQ HS 10/30/19 05/03/22 [Toujeo Solostar] Levothyroxine Sodium [Synthroid] 150 mcg PO DAILY 11/15/19 05/03/22 Insulin Aspart [NovoLOG Flexpen] 20 units SQ AC-TID 05/03/22 05/03/22 methocarbamoL [Methocarbamol] 750 mg PO Q6H PRN 05/03/22 05/03/22 traMADol HCl [Ultram] 50 mg PO Q4HR PRN 05/03/22 05/03/22 Allergies Allergy/AdvReac Type Severity Reaction Status Date / Time Penicillins Allergy Anaphylaxis Verified 08/14/24 11:02 Review of Systems ROS Statement: Those systems with pertinent positive or pertinent negative responses have been documented in the HPI. ROS Other: All systems not noted in ROS Statement are negative. Past Medical History Past Medical History: Cancer, Diabetes Mellitus, Eye Disorder, Hearing Disorder / Deafness, Hyperlipidemia, Liver Disease, Thyroid Disorder Additional Past Medical History / Comment(s): Bilateral Cataracts, hearing loss left ear. Hx thyroid cancer with thyroidectomy and radiation, cysts on liver, non alcoholic fatty liver. History of Any Multi-Drug Resistant Organisms: None Reported Past Surgical History: Cholecystectomy, Hysterectomy, Orthopedic Surgery Additional Past Surgical History / Comment(s): Partial hysterctomy, right carpal tunnel surgery. Past Anesthesia/Blood Transfusion Reactions: Previous Problems w/ Anesthesia Additional Past Anesthesia/Blood Transfusion Reaction / Comment(s): Weakness, dizziness and unsteady gait post anesthesia. "sister allergic to alot of me dications cannot have surgery" Past Psychological History: No Psychological Hx Reported Smoking Status: Current every day smoker Past Alcohol Use History: None Reported Past Drug Use History: None Reported - Past Family History Father Family Medical History: Coronary Artery Disease (CAD), CVA/TIA, Myocardial Infarction ([place]) Additional Family Medical History / Comment(s): Heart surgery. Brain Tumor, non cancerous. Mother Family Medical History: Cancer Additional Family Medical History / Comment(s): Lung Disorder. General Exam Limitations: no limitations General appearance: alert, in no apparent distress ENT exam: Present: normal exam, mucous membranes moist Neck exam: Present: normal inspection. Absent: tenderness, meningismus, lymphadenopathy Respiratory exam: Present: normal lung sounds bilaterally. Absent: respiratory distress, wheezes, rales, rhonchi, stridor Cardiovascular Exam: Present: regular rate, normal rhythm, normal heart sounds. Absent: systolic murmur, diastolic murmur, rubs, gallop, clicks GI/Abdominal exam: Present: soft, normal bowel sounds. Absent: distended, tenderness, guarding, rebound, rigid Right Knee exam: Present: full ROM, tenderness (posterior). Absent: swelling, ecchymosis, deformity Lower Leg exam: Present: normal inspection Neurovascular tendon exam: Present: no vascular compromise Back exam: Present: normal inspection Neurological exam: Present: alert, oriented X3, CN II-XII intact Course Vital Signs 08/14/24 08/14/24 10:59 13:49 Temperature 98.4 F 98.4 F Pulse Rate 77 73 Respiratory 20 18 Rate Blood Pressure 179/75 155/84 O2 Sat by Pulse 97 98 Oximetry Medical Decision Making - Medical Decision Making Was pt. sent in by a medical professional or institution (, PA, INVENTORY CONTROL CLERK, urgent care, hospital, or fdc...) When possible be specific @ -No Did you speak to anyone other than the patient for history (EMS, parent, family, police, friend...)? What history was obtained from this source @ -No Did you review nursing and triage notes (agree or disagree)? Why? @ -I reviewed and agree with nursing and triage notes Were old charts reviewed (outside hosp., previous admission, EMS record, old EKG, old radiological studies, urgent care reports/EKG's, fdc records)? Report findings @ -No old charts were reviewed Differential Diagnosis (chest pain, altered mental status, abdominal pain women, abdominal pain men, vaginal bleeding, weakness, fever, dyspnea, syncope, headache, dizziness, GI bleed, back pain, seizure, CVA, palpatations, mental he alth, musculoskeletal)? @ -Differential Musculoskeletal Muscular strain, contusion, ligament sprain, fracture, arthritis, septic arthritis, bursitis, cellulitis, muscle spasm, nerve compression, DVT, arterial occlusion, herpes zoster, electrolyte abnormality, tumor.... This is not meant to be in all inclusive list EKG interpreted by me (3pts min.). @ -None X-rays interpreted by me (1pt min.). @ -None done CT interpreted by me (1pt min.). @ -None done U/S interpreted by me (1pt. min.). @ -Ultrasound of the right lower extremity no evidence for DVT. What testing was considered but not performed or refused? (CT, X-rays, U/S, labs)? Why? @ -None What meds were considered but not given or refused? Why? @ -None Did you discuss the management of the patient with other professionals (professionals i.e. , PA, INVENTORY CONTROL CLERK, lab, RT, psych nurse, social service coordinator, audiovisual tech, teacher, senior compliance officer, ed case manager)? Give summary @ -No Was smoking cessation discussed for >3mins.? @ -No Was critical care preformed (if so, how long)? @ -No Were there social determinants of health that impacted care today? How? (Homelessness, low income, unemployed, alcoholism, drug addiction, transportat ion, low edu. Level, literacy, decrease access to med. care, [facility], rehab)? @ -No Was there de-escalation of care discussed even if they declined (Discuss DNR or withdrawal of care, Hospice)? DNR status @ -No What co-morbidities impacted this encounter? (DM, HTN, Smoking, COPD, CAD, Cancer, CVA, ARF, Chemo, Hep., AIDS, mental health diagnosis, sleep apnea, morbid obesity)? @ -None Was patient admitted / discharged? Hospital course, mention meds given and route, prescriptions, significant lab abnormalities, going to OR and other pertinent info. @ -Discharge. 73-year-old female with right lower extremity pain. On evaluation patient noted to have tenderness to palpation of the right posterior knee with no palpable cord, erythema, edema. There are no neurovascular deficits. Patient has full range of motion of the right lower extremity. She has pain with palpation of the right hip that is exacerbated on range of motion. There are no red flag findings concerning for cauda equina syndrome. Patient states that her pain has been well-controlled with oral medications that she is taking at home. Ultrasound negative for DVT. Patient has outpatient MRI ordered is waiting to schedule follow-up. Patient safe for discharge at this time. Discussed with Dr. Wise Undiagnosed new problem with uncertain prognosis? @ -No Drug Therapy requiring intensive monitoring for toxicity (Heparin, Nitro, Insulin, Cardizem)? @ -No Were any procedures done? @ -No Diagnosis/symptom? @ -sciatica, right hip/leg pain Acute, or Chronic, or Acute on Chronic? @ -acute Uncomplicated (without systemic symptoms) or Complicated (systemic symptoms)? @ -uncomplicated Side effects of treatment? @ -No Exacerbation, Progression, or Severe Exacerbation? @ -No Poses a threat to life or bodily function? How? (Chest pain, [place], [place], pneumonia, PE, COPD, DKA, ARF, appy, cholecystitis, CVA, Diverticulitis, Homicidal, Suicidal, threat to staff... and all critical care pts) @ -No Disposition Clinical Impression: Hip pain, Leg pain Disposition: HOME SELF-CARE Condition: Good Instructions (If sedation given, give patient instructions): Hip Pain (ED) Additional Instructions: Please return to the Emergency Department if symptoms worsen or any other concerns. Is patient prescribed a controlled substance at d/c from ED?: No Referrals: Raghu Arenas MD [Primary Care Provider] - 1-2 days Time of Disposition: 13:06
--- NOTE | 2024-08-14 12:46 | US ---
EXAMINATION TYPE: US venous doppler duplex LE RT DATE OF EXAM: 08/14/2024 12:30 PM COMPARISON: NONE CLINICAL INDICATION: Female, 73 years old with history of posterior leg/knee pain; Right leg pain x 2 weeks. No redness or swelling. No injury. TECHNIQUE: The lower extremity deep venous system is examined utilizing real time linear array sonog pino with graded compression, color doppler sonography, and spectral doppler. SIDE PERFORMED: Right FINDINGS: VESSELS IMAGED: Common Femoral Vein Deep Femoral Vein Greater Saphenous Vein * Femoral Vein Popliteal Vein Small Saphenous Vein * Proximal Calf Veins (* superficial vessels) Right Leg: Negative for DVT, Color Doppler imaging shows patency of the vessels. Spectral waveforms are within normal limits. IMPRESSION: No evidence of deep vein thrombosis of the right lower extremity. [facility], , 08/14/2024 12:44 PM
[2024-08-14 13:50] VITALS: BP 155/84; PULSE 73; RESP 18
== END 2024-08-14 13:51 | disposition home or self-care (01) ==
LOC: EC 10:54
DX: M54.31 Sciatica, right side (principal); F17.200 Nicotine dependence, unspecified, uncomplicated; Z88.0 Allergy status to penicillin
CPT/HCPCS: 99283

== ENCOUNTER → 2024-08-31 | Outpatient (CLI) | payer MEDICARE ==
--- NOTE | 2024-08-31 21:47 | MR ---
EXAMINATION TYPE: MR lumbar spine wo con DATE OF EXAM: 08/31/2024 7:22 PM COMPARISON: None. CLINICAL INDICATION: Female, 73 years old with history of M54.41 LUMBAGO WITH SCIATICA RIGHT SIDE; PH H, low back, sharp pain down both legs at times and unable to walk when it happens, surgery history. TECHNIQUE: Multi planar, multi sequence imaging was performed utilizing: T1-weighted, T2-weighted, a nd turbo inversion recovery imaging of the lumbar spine. IV Contrast: mL (None, if empty) FINDINGS: Alignment: The lumbar vertebral bodies have preserved heights and alignment. Cord: The conus medullaris and the distal spinal cord appear unremarkable with regards to their signa l intensity and morphology. Bones/Discs: Mild degeneration changes throughout the spine with osteophyte formation and facet joint arthropathy. Multilevel disc desiccation is present. No abnormal inversion recovery signal to sugges t bony edema. Postsurgical changes of the spine with fixation hardware at L3-L4 and L5. T12-L1: No evidence of significant spinal canal stenosis or neural foraminal stenosis. L1-L2: No evidence of significant spinal canal stenosis or neural foraminal stenosis. L2-L3: Disc bulge with moderate to severe spinal canal stenosis. Moderate to severe right and moderat e left neural foraminal stenosis secondary to facet joint arthropathy.. L3-L4: Susceptibility artifact limits evaluation at this level. The spinal canal and neural foramen a ppear patent. L4-L5: Susceptibility artifact limits evaluation at this level. The spinal canal and neural foramen a ppear patent. L5-S1: Susceptibility artifact limits evaluation at this level. The spinal canal and neural foramen a ppear patent. No significant spinal canal or neural foraminal stenosis in the remainder of the visualized levels. Other findings: Left renal cyst. IMPRESSION: 1. L2-L3 disc bulge with moderate to severe spinal canal stenosis. Additionally at this level there is moderate to severe right neural foraminal stenosis. 2. Evaluation from L3 to S1 is mildly limited due to susceptibility artifact. No significant spinal canal or neural foraminal stenosis. 3. No definitive evidence of disc herniation. 4. Mild disc degeneration with associated osteoarthritic changes. [facility], , 08/31/2024 9:45 PM
== END | disposition home or self-care (01) ==
LOC: RADMRIMAIN 18:33
PROVIDERS: ATTEND Family Medicine
DX: M48.061 Spinal stenosis, lumbar region without neurogenic claudication (principal); M51.360 Other intervertebral disc degeneration, lumbar region with discogenic back pain only; M47.816 Spondylosis without myelopathy or radiculopathy, lumbar region
CPT/HCPCS: 72148

== ENCOUNTER → 2024-10-01 | Outpatient (CLI) | payer MEDICARE | END | disposition home or self-care (01) | LOC: LABWHC1 12:05 | PROVIDERS: ATTEND Orthopaedic Surgery | DX: Z01.818 Encounter for other preprocedural examination (principal) | CPT/HCPCS: 86850; 86900; 86901; 87070 ==

== ENCOUNTER 2024-10-11 12:00 | Inpatient (IN) | payer MEDICARE ==
[2024-10-19] MEDS ORDERED: TRANEXAMIC 1,000 MG/100ML-NACL 1,000 MG in SALINE 1 100ML.BAG IVPB PRN (05:00)
[2024-10-19] MEDS ORDERED: MIDAZOLAM 2 MG/2 ML VIAL IV PRN (07:00)
[2024-10-19 11:55] LABS: Glucose,Whole Blood 120 mg/dL (70-110)
[2024-10-19] MEDS: LACTATED RINGERS 1,000 ML IV SCH (12:09)
[2024-10-19] MEDS: ACETAMINOPHEN TAB 500 MG TAB PO PRN (12:10)
[2024-10-19] MEDS: GABAPENTIN 300 MG CAP PO PRN (12:10)
[2024-10-19] MEDS: ONDANSETRON 4 MG/2 ML VIAL IVP PRN ×2 (12:10→21:17)
[2024-10-19] MEDS: IV FLUID CONTINUATION 1,000 ML IV ONE ×2 (12:13→12:28)
[2024-10-19] MEDS ORDERED: PROPOFOL 10 MG/ML 20 ML VIAL IV ONE (15:20)
[2024-10-19] MEDS ORDERED: SUCCINYLCHOLINE CHLORIDE 200 MG/10 ML VIAL IV ONE (15:20)
[2024-10-19] MEDS ORDERED: TRANEXAMIC 1,000 MG/100ML-NACL PREMIX BAG ONE (15:20)
[2024-10-19] MEDS ORDERED: fentaNYL (PF) 50 MCG/ML 2 ML AMP ONE (15:20)
[2024-10-19] MEDS ORDERED: KETAMINE HCL IN 0.9 % NACL 50 MG/5 ML SYRINGE ONE (15:20)
[2024-10-19] MEDS ORDERED: MIDAZOLAM 2 MG/2 ML VIAL ONE (15:20)
[2024-10-19] MEDS ORDERED: LIDOCAINE 1% INJ 10MG/ML (20 ML MDV) ONE (15:20)
[2024-10-19] MEDS: THROMBIN (BOVINE) 5,000 UNIT VIAL TOPICAL ONE (16:09)
--- NOTE | 2024-10-19 17:12 | P.HPOR ---
History of Present Illness H&P Date: 10/19/24 .D:Date: 09/26/24 : 05:46pm .T:Title: [facility] [address] [place] [id number]| PROVIDER: JEAN-CLAUDE ROBLEDO DO CLINICAL SUMMARY: Ms. Pichardo is a 74-year-old female who presents with severe lumbar pain (VAS 9/10) radiating bilaterally to the legs with associated foot coldness. She has a history of lumbar fusion in 2021 and reports worsening balance since July 2024, with two falls in the past two months. The patient also reports urinary incontinence and requires wheelchair assistance for mobility. Current treatment with Tramadol has been ineffective in managing symptoms. 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 MRI demonstrates L2-L3 disc bulge with moderate to severe spinal canal stenosis and right neural foraminal stenosis. Physical examination reveals significant functional limitations, requiring wheelchair assistance for mobility. The patient's condition has shown rapid progression since July 2024, with deteriorating balance and multiple falls. Given the severity of symptoms, presen ce of neurological deficits, and imaging findings, urgent surgical intervention has been recommended in the form of a staged L2-3 lateral interbody fusion and PLIF procedure. DEMOGRAPHICS: Age: 74 year Height: 5'5" Weight: 222 lbs BP:132/80 BMI: 36.94 kg/m2 Occupation: Retired/Denominational CC: lumbar pain VAS: 9 HISTORY: Ms. Pichardo presents to the office today, 09/26/24, for an evaluation of her lumbar pain. Patient reports constant sharp and shooting pain across the low back that radiates down the bilateral legs, associated with coldness of the feet. Her pain is exacerbated with standing, stairs, and bending. Patient previously underwent a lumbar fusion in 2021 at [place]. She states since this surgery her balance has been off with her walking getting worse since July 2024. Patient has fallen 2 times in the past 2 months. She also reports urinary incontinence. Patient is currently taking Tramadol without resolution of her symptoms. She ambulates in a wheelchair due to her pain and symptoms. * Patient denies any f/c/sob/cp, perineal numbness or tingling, bowel, or b ladder incontinence/retention. * The patients past social, medical, family, surgical history, as well as review of systems, have been reviewed. Please refer to the History and Physical form that has been scanned into our electronic medical record system. * 16 points review of systems completed and as stated in HPI, all other systems reviewed are negative. PAST TREATMENTS: PAST IMAGING: -YES, xray, MRI - TRAUMA RELATED: -NO - WORK RELATED: -NO - PT IN LAST 6 MONTHS: -YES, no relief - PHYSICIAN DIRECTED HOME EXERCISE PROGRAM: -YES, no relief - ACTIVITY MODIFICAITON: -YES, patient has had to begin using a walker or wheelchair due to her pain and symptoms debilitating her - MEDICATIONS: -YES, Tramadol - ALTERNATIVE INTERVENTIONS (CHIROPRACTIC, ACCUPUNCTURE, MASSAGE, RICE): -YES - BRACING: -NO - INJECTIONS (ARIANA, TF, RFA): -NO MEDICAL HISTORY: Past Medical History: REVIEWED STATED IN CHART Past Surgical History: REVIEWED STATED IN CHART Social History: REVIEWED STATED IN CHART SMOKING: Never smoker ETOH: None SUBSTANCES: None Family History: REVIEWED STATED IN CHART P1 Current Medications: Rx: Crestor Ref: 0 Rx: levothyroxine 100 mcg tablet Ref: 0 Instructions: take 1 tablet (100 mcg) by oral route once daily Rx: Toujeo Max U-300 SoloStar Ref: 0 Rx: traMADol Ref: 0 Rx: ALPRAZolam 0.5 mg tablet Ref: 0 Instructions: take 1 tablet (0.5 mg) by oral route 2 times per day Rx: cyclobenzaprine 5 mg tablet Ref: 0 Instructions: take 1 tablet (5 mg) by oral route 3 times per day Rx: lisinopriL 2.5 mg tablet Ref: 0 Instructions: take 1 tablet (2.5 mg) by oral route once daily P1 PHYSICAL EXAM: General: AOX3, NAD, Well hydrate, well nourished HEENT: No lumps or masses Extremities: No color changes, no pooling INTEGUMENT: Appearance: Normal color and turgor Surgical Incisions: Healed Hairy Patches: ABSENT Dorsal Skin Dimples: Normal [employer] spots: ABSENT PALPATION: TTP Midline: YES Paracervical: NO Parathoracic: NO Paralumbar: YES SIJ TESTING (Juarez's, FABER4, Compression, Distraction, Thigh Thrust, Hip Thrust): TESTED * POSITIVE FINDINGS: N/A NEGATIVE FINDINGS: Juarez's, FABER4, Compression, Distraction, Thigh Thrust, Hip Thrust POSTURAL BALANCE: Coronal: BALANCED Sagittal: BALANCED Shoulder height: LEVEL Pelvic Girdle: LEVEL ROM AND APPEARANCE: Neck: UNRESTRICTED Lumbar: RESTRICTED with pain Shoulders: Symmetrical Hips: Symmetrical Knees: Symmetrical Hands: Symmetrical Feet: Symmetrical VASCULAR STATUS: PALPABLE PULSES B/L UE AND LE 2/4 RAD/ULNAR/DP/PT Edema: NONE NEUROLOGICAL EXAMINATION: Mental Status: Awake, alert, fully oriented with normal attention, concentration, and memory. Fluent appropriate speech. CRANIAL NERVES: I: Olfactory not assessed. II: Visual acuity normal, no visual field deficit noted with confrontation. III, IV: Normal pupillary reflexes & intact extraocular movements without nystagmus. V, : Intact symmetrical facial sensation. VII: Intact symmetrical facial motor movement: Hearing intact. IX, X: Intact gag, swallow, & normal voice. XI: Sternocleidomastoid, trapezius function intact. XII: Tongue midline with normal movements. TENSIONING: * L'HERMITTE'S SIG:NEG SPURLUNG'S SIGN:NEG UPPER EXTREMITY TENSIONING SIGNS: NEG CUBITAL TUNNEL COMPRESSION:NEG TINELS AT WRIST:NEG STRAIGH LEG RAISE:NEG CONTRALATERAL STRAIGHT LEG RAISE: NEG MOTOR EXAM (0-5/5, NT) Muscle appearance: Symmetrical, without signs of atrophy or dystrophy UPPER EXTREMITY RIGHT LEFT Shoulder Abduction 5 5 Biceps 5 5 Triceps 5 5 Wrist Extension 5 5 Hand Intrinsics 5 5 Air Conditioning Sheet Metal Installer 5 5 LOWER EXTREMITY RIGHT LEFT Hip Flexion 4 4 Knee Extension 4 4 Knee Flexion 4 4 Dorsiflexion 4 4 Plantarflexion 4 4 EHL 4 4 FHL 4 4 REFLEXES (0-4/2, NT): RIGHT LEFT Bicep 2 2 Brachioradialis 2 2 Triceps 2 2 Patellar 2 2 Achilles 2 2 PATHOLOGICAL REFLEXES: RIGHT LEFT SALGADO'S ABSENT ABSENT CLONUS ABSENT ABSENT BABINSKI ABSENT ABSENT RECTAL TONE: INTACT/NT SENSATION (0-4, NT): Sensation intact to LT and Pain * C5-T1 distribution BUE * L2-S2 distribution BLE *Exceptions below* DERMATOMAL DEFICIT/RADICULAR PATTERN: L2-3 BLE GAIT AND FUNCTIONAL EVALUATION: AMBULATORY AID Wheelchair ROMBERG'S TEST INTACT HAND AND FINGER DEXTERITY INTACT YES DYSDIADOCHOKINESIA EXAM NEG B/L YES TOE/HEEL WALK INTACT WITH GOOD BALANCE NO SQUAT AND RISE W/O ASSISTANCE TO 60 DEG KNEE FLEXION NO SINGLE LEG STANCE NOT ABLE TRENDELENBURG NEG IMAGING: XRay Lumbar Multiview (AP, Lateral, Flexion, Extension) with AP pelvis; 5 views taken at [facility] 09/24/24: Mild to moderate multilevel spondylitic and degenerative changes with preserved alignment. Hardware present L3-S1 that involves screws and rods. Hardware is intact with no migration or failure. There is adjacent segment disease L2-L3 with diminished disc height. Vertebral body heights are preserved. No acute osseous abnormalities. Pelvis: The visualized sacrum and iliac wings are within normal limits. MRI scancompleted at [facility] from 08/31/24 of [facility]: IMPRESSION: 1. L2-L3 disc bulge with moderate to severe spinal canal stenosis. Additionally at this level there is moderate to severe right neural foraminal stenosis. 2. Evaluation from L3 to S1 is mildly limited due to susceptibility artifact. No significant spinal canal or neural foraminal stenosis. 3. No definitive evidence of disc herniation. 4. Mild disc degeneration with associated osteoarthritic changes. IMPRESSION: It was my pleasure to have seen and examined Awa. I reviewed the patient's clinical syndrome, physical findings, and imaging studies during the appointment today. It is my impression that the patient has a diagnosis of. 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 Low back pain 5. Lower extremity weakness PLAN: DISCUSSION: -I have discussed with the patient their clinical signs and symptoms, imaging, and treatment options. We have discussed risks, benefits, potential outcomes and natural course as pertains top their issues. The patient understands and would like to proceed as follows below: SURGICAL RECOMMENDATION -URGENT Stage I: L2-3 lateral interbody fusion and Stage II: L2-3 PLIF THERAPIES -Cont. with home exercises and home PT exercises as able -Cont. with Heat/Ice as warranted -Cont. with supplementation Vit D, Vit C, Ca2+, High protein diet -OK for massage or other alternative treatment modalities as able. If it exacerbates your sx do not continue ACTIVITY -NO LIFTING BENDING TWISTING PUSHING PULLING GREATER THAN -20lbs -Recommend walking up to 30 min 2x daily on a flat easy surface with good support. MEDICATIONS -Take as directed -Cont. home medications as directed by your PCP. Check with your PCP for any medication interactions or issues if needed. IMAGING -N/A INJECTIONS -N/A Spine Surgery Risk Review Ms. Pichardo is presenting for evaluation of lumbar pain. It was my pleasure to have seen and examined Ms. Pichardo. In our visit today we have had a chance to go over subjective complaints, physical examination findings and treatments including the natural course history without intervention and various interventional options. The patients imaging demonstrates: XRay Lumbar Multiview (AP, Lateral, Flexion, Extension) with AP pelvis; 5 views taken at [facility] 09/24/24: Mild to moderate multilevel spondylitic and degenerative changes with preserved alignment. Hardware present L3-S1 that involves screws and rods. Hardware is intact with no migration or failure. There is adjacent segment disease L2-L3 with diminished disc height. Vertebral body heights are preserved. No acute osseous abnormalities. Pelvis: The visualized sacrum and iliac wings are within normal limits. MRI scancompleted at [facility] from 08/31/24 of [facility]: IMPRESSION: 1. L2-L3 disc bulge with moderate to severe spinal canal stenosis. Additionally at this level there is moderate to severe right neural foraminal stenosis. 2. Evaluation from L3 to S1 is mildly limited due to susceptibility artifact. No significant spinal canal or neural foraminal stenosis. 3. No definitive evidence of disc herniation. 4. Mild disc degeneration with associated osteoarthritic changes. On physical exam, Ms. Pichardo demonstrates: Patient reports constant sharp and shooting pain across the low back that radiates down the bilateral legs, associated with coldness of the feet. Her pain is exacerbated with standing, stairs, and bending. Patient previously underwent a lumbar fusion in 2021 at [place]. She states since this surgery her balance has been off with her walking getting worse since July 2024. Patient has fallen 2 times in the past 2 months. She also reports urinary incontinence. Patient is currently taking Tramadol without resolution of her symptoms. She ambulates in a wheelchair due to her pain and symptoms. I have explained to the patient that as their condition progresses it will cause further neurological deficits and eventual paralysis. Based on the patients imaging, physical exam, and the rapid progression and disabling nature of their symptoms, at this time I recommend surgery in the form of a: URGENT Stage I: L2- 3 lateral interbody fusion and Stage II: L2-3 PLIF. I discussed the risk and b enefits of this procedure at length with Ms. Pichardo. The patient agreed to considered pursuing the procedure abovementioned. Prior to surgery, she should follow up with her PCP (Cardio, ID, IM etc) for clearance. Questions were invited and answered, and the patient wishes to proceed as outlined below. Currently, I am recommendin.URGENT Stage I: L2-3 lateral interbody fusion and Stage II: L2-3 PLIF 2.Follow up with PCP for surgical clearance 3.Review of surgical risks and benefits as well as an educational packet on the proposed surgical procedure. Risks: All surgical procedures come with inherent risks, including those related to positioning, anesthesia, intraoperative findings, and postoperative complications. It is important to understand that surgery does not come with any guarantee of a successful outcome as complications and adverse events are always possible. The patient was given a handout in office today discussing the surgical procedure and risks associated with the intervention, both of which were discussed with the patient. These risks include but are not limited to the following: * Experiencing same, different or even worse symptoms in back, neck, arms, or legs compared to before surgery. Requiring further surgery or other forms of treatment presently or at some time in the future at same or other levels of the intended spine surgery. On an extreme but fortunately relatively rare basis severe complication such as blindness, stroke, heart attack, temporary and/or permanent nerve injury, paralysis, coma, or may occur, sometimes without known explanation. Surgical complications may include but are not limited to risk of infection, fluid accumulation in the surgical dissection site, including a seroma or hematoma, that requires additional surgery, wound drainage, bleeding, new numbness or weakness, vision changes/loss, spinal fluid leakage, non-healing and/or infected incision, headaches, difficulty or inability to swallow, hoarseness, hemopneumothorax, pneumothorax, impotence, retrograde ejaculation, vaginal dryness; injury to nerves, spinal cord, blood vessels, lymphatics or other vital organs (i.e., bowel injury, injury to the great vessels); heterotopic bone formation; complications related to the hardware such as screws, rods, cages including misplaced hardware, device failure, instrumentation at the wrong spine level, hardware fracture/breakage, or hardware loosening; vertebral failure of the spinal column above or below the newly placed hardware; retained surgical instrumentations or devices and the need for further surgery. * Medical risks of the planned spine surgery include but are not limited to generalized Infections to the whole body or local areas outside of the surgical site (sepsis), heart attack, bleeding, anaphylaxis, meningitis, seizure, epilepsy, hearing loss, burn graf, laceration of the head or other areas of the body, bruising, hypersensitivity of the skin, bladder over distension; allergic reaction; shoulder injury related to positioning; fat, blood and air clots to other areas of the body like heart, lungs, brain; failure of internal organs such as lungs, kidneys, liver and excessive bleeding. If blood transfusions are necessary, note that transfusions may cause intolerance reactions such as anaphylaxis or other complex reactions. Despite best efforts, the results of spine surgery might not heal in terms of bone, soft tissues such as skin, fascia, ligaments, and joints. Additionally, in order to achieve best possible results, spine surgery may be carried out beyond the initially planned levels and involve decompression, fusion including insertion of hardware at levels other than the original intended area of surgical interest change some portions of the procedure in order to ensure the best possible outcomes. With spine surgery and spinal fusion, there are different off label uses of instrumentation (devices, implants and hardware) as well as biological substances (bone morphogenic proteins, demineralized bone matrix) as well as using extra bone from allograft sources (i.e. cadaver bone) or autograft (iliac crest bone, ribs, or the spine itself). The patient has been given information about these practices and their inherent risks and benefits. [facility] is an educational center that serves as a training facility for neurosurgical and orthopedic BRAID MAKER and Nursing students. Physician assistants are medically trained surgical providers who function in the outpatient, inpatient, and operating room setting under the direct supervision of the attending surgeon. [facility] has multiple operating rooms with single and overlapping rooms running daily. They currently function under the required guidelines as produced by the Senate Finance Committee with regards to the overlapping rooms and will continue to comply with changes to this policy as they occur. The requirements include and are complied with as follows: (1) the critical portions of the overlapping rooms will not occur at the same time, (2) the attending physician will be physically present during the critical portions of the procedure and immediately available during the entire case, and (3) a back-up attending is designated should the primary attending not be immediately available. The patient has had a chance to review all the listed information, has been given print outs detailing this information, and has had all his/her questions answered to their satisfaction. It was my pleasure to have seen and examined Ms. Pichardo. In our visit today we have had a chance to go over my understanding of our patient's current condition, the natural course history without intervention and various interventional options. Questions were invited and answered, and the patient wishes to proceed as outlined above. I have seen and examined the patient for 25 minutes and we have spent more than 50% of the time in repeat and detailed counseling about the patient's condition, its natural course history with out and as much as can be predicted with surgery and re-review of various surgical treatment options. In conclusion, Ms. Pichardo requested we proceed with the above suggested surgery and are willing to accept risks and limitations of the suggested surgery as nature of the disease process and our best attempts at treatment for the condition. MEDICAL NECESSITY: Imaging studies demonstrate significant adjacent segment disease at L2-L3, characterized by moderate to severe spinal canal stenosis (AP canal diameter reduced by >75%) and right neural foraminal stenosis with nerve root impingeme nt. MRI findings also reveal disc height loss and facet hypertrophy at this level. The patient's condition shows rapid neurological deterioration with multiple concerning symptoms includin. Bilateral radiculopathy with associated lower extremity numbness and weakness 2. Progressive gait instability requiring wheelchair assistance 3. Urinary incontinence indicating possible cauda equina involvement 4. Two documented falls within the past two months due to balance impairment Conservative management including oral pain medications (Tramadol), activity modification, and assistive devices has failed to provide meaningful symptom relief. Without urgent surgical intervention, there is a high risk of permanent neurological compromise including potential paralysis, bowel/bladder dysfunction, and complete loss of ambulatory function. The severity and progression of symptoms, combined with the documented imaging findings, strongly support the medical necessity for surgical intervention. SURGICAL RATIONALE: Given the patient's progressive neurological deficits (including bilateral radiculopathy, gait instability, and urinary symptoms), combined with documented imaging findings of severe L2-3 stenosis (>75% canal compromise) and failed conservative management including oral analgesics and activity modification, urgent surgical intervention is warranted. The proposed L2-3 lateral interbody fusion and PLIF will address both the adjacent segment disease and stenosis by restoring disc height, decompressing neural elements, and providing immediate stability. This intervention aims to prevent further neurological deterioration and improve the patient's quality of life by addressing both mechanical and neurological symptoms. The two-stage approach is specifically chosen to optimize surgical access and outcomes while minimizing operative time, blood loss, and surgical risks in this medically complex patient with multiple comorbidities. Stage I (lateral approach) will allow for indirect decompression and anterior column support, while Stage II (posterior approach) will provide definitive neural decompression and circumferential fusion. FOLLOW UP: PRE-OP PLAN AT NEXT VISIT: RECHECK PATIENT EDUCATION: Medications Reviewed: YES In our visit today Ms. Pichardo and I have had a chance to go over my understanding of the patient's current condition, the natural course history without intervention and various interventional options. Questions were invited and answered, and the patient wishes to proceed as outlined above. I will be sure to keep you updated after Ms. Pichardo returns here for further follow-up. Thank you again for your referral. Please do not hesitate to contact me if you have any further questions. Signed and authenticated by: Jean-Claude Rubalcava [facility] [address] [place] [address] . This message is confidential, intended only for the named recipient(s) and may contain information that is privileged or exempt from disclosure under applicable law. If you are not the intended recipient(s), you are notified that the dissemination, distribution or copying of this information is prohibited. If you received this message in error, please notify the sender then delete this message. # SIGNED BY Jean-Claude Robledo (STEVEN)09/27/2024 04:18PM # REVISED BY Jean-Claude Robledo (STEVEN)09/27/2024 04:20PM Past Medical History Past Medical History: Cancer, Diabetes Mellitus, Hearing Disorder / Deafness, Hyperlipidemia, Hypertension, Liver Disease, Thyroid Disorder Additional Past Medical History / Comment(s): Deaf left ear, hx thyroid cancer- surg & radiation, cysts on liver, non alcoholic fatty liver, urinary urgency, bladder leakage, wears pads/depends, has CGM History of Any Multi-Drug Resistant Organisms: None Reported Past Surgical History: Cholecystectomy, Hysterectomy, Orthopedic Surgery Additional Past Surgical History / Comment(s): Partial hysterectomy, right carpal tunnel surgery, thyroidectomy, josy cataract surg Past Anesthesia/Blood Transfusion Reactions: Previous Problems w/ Anesthesia Additional Past Anesthesia/Blood Transfusion Reaction / Comment(s): Weakness, dizziness and unsteady gait post anesthesia cholecystectomy. "sister allergic to alot of medications cannot have surgery" Smoking Status: Former smoker - Past Family History Father Family Medical History: Coronary Artery Disease (CAD), CVA/TIA, Myocardial Infarction ([place]) Additional Family Medical History / Comment(s): Heart surgery. Brain Tumor, non cancerous. Mother Family Medical History: Cancer Additional Family Medical History / Comment(s): Lung Disorder. Medications and Allergies Home Medications Medication Instructions Recorded Confirmed Type Insulin Glargine,Hum.rec.anlog 40 unit SQ BID 10/30/19 10/19/24 History [Toujeo Solostar] Levothyroxine Sodium [Synthroid] 100 mcg PO DAILY 11/15/19 10/19/24 History Insulin Aspart [NovoLOG Flexpen] 10 - 20 units SQ AC-TID PRN 05/03/22 10/19/24 History traMADol HCl [Ultram] 50 mg PO Q4HR PRN 05/03/22 10/19/24 History LORazepam [Lorazepam] 0.5 mg PO DAILY PRN 10/15/24 10/19/24 History Rosuvastatin [Crestor] 20 mg PO HS 10/15/24 10/19/24 History Solifenacin Succinate [Vesicare] 10 mg PO HS 10/15/24 10/19/24 History lisinopriL [Zestril] 2.5 mg PO DAILY 10/15/24 10/19/24 History Allergies Allergy/AdvReac Type Severity Reaction Status Date / Time Penicillins Allergy Anaphylaxis Verified 10/19/24 11:18 Physical Examination Osteopathic Statement: *. No significant issues noted on an osteopathic structural exam other than those noted in the History and Physical/Consult. Results - Labs Labs: Abnormal Lab Results - Last 24 Hours (Table) 10/19/24 Range/Units 11:54 POC Glucose (mg/dL) 120 H (70-110) mg/dL
--- NOTE | 2024-10-19 17:16 | P.OP ---
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 Low back pain 5. 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 Low back pain 5. Lower extremity weakness Procedure(s) Performed: 1. L2-3 LATERAL INTERBODY FUSION 2. L2-3 INSERTION OF BIOMECHANICAL DEVICE, CAGE, x1 3. ANTERIOLATERAL INSTRUMENTATION L2-3 USE OF IONM Implants: GLOBUS VIKI LATERAL CAGE 8-17 7 DEG, 55MM ARTHROCELL, ALLOCELL AF AUTOGRAFT Anesthesia: GETA Surgeon: bK Lyon Laboratory Chief #1: Michaelle Severino (was present and assisted with all aspects of the case from position to dressing placement) Estimated Blood Loss (ml): 25 IV fluids (ml): 1,000 Urine output (ml): 350 Pathology: none sent Condition: stable Disposition: PACU Indications for Procedure: Ms. Pichardo is a 74-year-old female who presents with severe lumbar pain (VAS 9/10) radiating bilaterally to the legs with associated foot coldness. She has a history of lumbar fusion in 2021 and reports worsening balance since July 2024, with two falls in the past two months. The patient also reports urinary incontinence and requires wheelchair assistance for mobility. Current treatment with Tramadol has been ineffective in managing symptoms. 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 MRI demonstrates L2-L3 disc bulge with moderate to severe spinal canal stenosis and right neural foraminal stenosis. Physical examination reveals significant functional limitations, requiring wheelchair assistance for mobility. The patient's condition has shown rapid progression since July 2024, with deteriorating balance and multiple falls. Given the severity of symptoms, presence of neurological deficits, and imaging findings, urgent surgical intervention has been recommended in the form of a staged L2-3 lateral interbody fusion and PLIF procedure. Description of Procedure: L2-3 lateral interbody fusion The patient was seen and examined in the preoperative area. All preoperative protocols were followed. Informed consent was obtained, risks and benefits of the procedure were discussed at length. Risks including bleeding infection semaj ge to the surrounding tissue and risk of reoperation were discussed with the patient. Risk of anesthesia up to and including was discussed with the patient. These are outlined in the risk review. They were willing to accept these risks and all of the risks of surgery. The patient was given a weight- based dose of antibiotics in the form of 2 g Ancef. The patient was seen and evaluated by the anesthesia team who deemed them fit for surgery. The site was marked, the patient was willing to proceed with the procedure. The patient was transferred to the operative suite by the Department of anesthesia. They were then drifted off to sleep by the department anesthesia and GETA was performed. The patient tolerated this well. Ferrari catheter was placed by nursing staff, atraumatically. Once confirmation of lines and ventilation the patient was transferred to a flat Zhen table and placed in the right lateral decubitus position. Axillary roll was placed. Hip Bump was placed. All bony prominences including wrists, elbows, axilla, chest, hips, and thighs, and feet were padded very well. Special attention was paid to the genitalia and these were padded accordingly. SCDs were placed on bilateral lower extremities and were connected. Arms were well padded and placed on armboard pillows. The patient was taped to the table and secured. Once in position, again we confirmed good ventilation capabilities and that lines were running appropriately. The patient's left lateral lumbar and flank was then exposed. 1010s were placed outlining the incision site. Standard alcohol was used to clean the incision site and allowed to dry. C-arm was used to biomark the patient and confirm level for incision which was marked with a skin marker. Operative briefing was performed with all teams and everyone in agreement to proceed. The patient was then prepped and draped in a normal sterile fashion. Timeout was then performed and all parties were in agreement with the procedure to be performed. Transverse skin incision was then made over the previously biomarker area and dissection taken down with EC to the external oblique fascia. This was then identified and two large madonna clamps then used for blunt dissection through the external, internal and transverse abdominis inline with the level to be exposed. Once the transversalis fascia was identified the retroperitoneal space was entered bluntly and blunt dissection was used to sweep abdominal contents anteriorly. Retroperitoneal fat was identified and the psoas as well as TVP was palpated. Once this was identified a blunt probe was placed with the help of biplanar fluoroscopy at the L2-3 level. Once it was in good position in the posterior ? of the body and at the disc space, a wire was passed. IONM was used to stimulate the probes before at 2 and 5 mA with no responses in all 4 quadrants. Dilator was then placed over the probe and stimulated and there was no response again. Retractor blades were then chosen and retractor placed and secured in position and to the table. The blades were carefully then opened slightly and the IONM probe sent down all 4 quadrants again without any responses at 2, 5 and 10 mA. The retractor was then opened further for visualization and the dilators and wire removed. Disc space was visible and a combination of bipolar and EC were used to clean margins and identify disc. Once it was identified, rongeur was used to remove outer osteophytes. A osteotome was then used to pass through the disc space under fluoroscopic guidance once this was passed a Pedroza was then passed in a similar fashion through to the opposite side to release the osteophytes on this side as well. Once these were released sequential box osteotomes were passed in a similar fashion until the disc had been completely removed. Good bleeding endplates were noted. Pituitary was used to remove any floating or excess fragments. The trial was then placed and sized. The disc space was irrigated. A [55 mm x 22 mm 8-16 mm] expandable lateral leg spine cage was then selected and placed under fluoroscopic guidance. The cages then expanded to its desired height, reducing a and restoring disc space height and lordosis and alignment. The cage was backfilled with allograft, autograft. The quality assurance practice manager was then removed and the area inspected. No injury was evident, minimal bleeding was cauterized and AP and Lateral images confirmed good placement of cage. Instrumentation was then done under fluoroscopic guidance. Awl was passed and screw was measured. The screw was then placed and tightened. Locking mechanism set. This was then repeated cranial and caudal vertebral bodies for instrumentation anson L2-3. Screws had good purchase. The wound was then irrigated. Floseal placed deep and meticulous hemostasis done. The retractor was then removed under direct visualization at 20 min in the psoas. The wound was copiously irrigated with NSS. The deep fascia was then closed with 0 Vicryl superficial closed with 2-0 Vicryl and the skin was closed with skin rody. Wound was then dressed with optifoam dressing. The patient was then transferred to their hospital bed atraumatically. Patient was then awakened and extubated by the department of anesthesia having tolerated the procedure very well with no complications. They were transferred to the postoperative care unit in stable condition.
[2024-10-19] MEDS ORDERED: CYCLOBENZAPRINE 5 MG TAB PO PRN (17:22)
[2024-10-19] MEDS ORDERED: HYDROmorphone 0.5 MG/0.5 ML SYRINGE IVP PRN (17:22)
[2024-10-19] MEDS ORDERED: HYDROmorphone 1 MG/ML 1 ML SYRINGE IVP PRN (17:22)
--- NOTE | 2024-10-19 17:28 | XR ---
Intraoperative/procedural fluoroscopic services were provided for L2-L3 interbody fusion. Hardware ap pears intact and appropriately positioned. Additional previously seen posterior lumbar fusion hardwar e were from L3 setting inferiorly. Total fluoroscopy time is 59.8 seconds with a total of 4 submitted images to PACS. Total DAP 24.473 Gycm2. Please see the operative note for further details. [facility], , 10/19/2024 5:26 PM
[2024-10-19] MEDS: METOPROLOL TARTRATE 5 MG/5 ML VIAL IVP ONE (17:40)
[2024-10-19] MEDS: HYDROmorphone 0.5 MG/0.5 ML SYRINGE IVP PRN (18:50)
[2024-10-19 19:10] LABS: Glucose,Whole Blood 91 mg/dL (70-110)
[2024-10-19 21:27] LABS: Glucose,Whole Blood 116 mg/dL (70-110)
[2024-10-19] MEDS ORDERED: LORazepam 0.5 MG TAB PO PRN (21:37)
[2024-10-19] MEDS: KETOROLAC 15 MG/ML 1 ML VIAL IVP SCH (22:42)
[2024-10-19] MEDS: ATORVASTATIN 40 MG TAB PO SCH (22:43)
[2024-10-20 03:57] LABS: Basophils % (A) 0 %; Eosinophils # (A) 0.1 k/uL (0-0.7); Eosinophils % (A) 1 %; HCT 38.5 % (34.0-46.0); HGB 12.9 gm/dL (11.4-16.0); Lymphocytes # (A) 1.3 k/uL (1.0-4.8); Lymphocytes % (A) 16 %; MCH 32.2 pg (25.0-35.0); MCHC 33.5 g/dL (31.0-37.0); Mean Platelet Volume 9.6; Monocytes # (A) 0.3 k/uL (0-1.0); Monocytes % (A) 4 %; Neutrophils # (A) 5.9 k/uL (1.3-7.7); Neutrophils % (A) 77 %; Platelet Count 158 k/uL (150-450); RBC 4.01 m/uL (3.80-5.40); RDW 13.7 % (11.5-15.5); WBC 7.7 k/uL (3.8-10.6)
[2024-10-20 04:47] LABS: African American GFR (CKD) 78 (>60 ml/min/1.73 sqM); Anion Gap 4 mmol/L; Blood Urea Nitrogen 15 mg/dL (7-17); Calcium 8.8 mg/dL (8.4-10.2); Carbon Dioxide 30 mmol/L (22-30); Chloride 101 mmol/L (98-107); Glucose 180 mg/dL (74-99); Non-African American GFR(CKD) 67 (>60 ml/min/1.73 sqM); Potassium 4.7 mmol/L (3.5-5.1); Sodium 135 mmol/L (137-145)
[2024-10-20 06:23] LABS: Glucose,Whole Blood 203 mg/dL (70-110)
[2024-10-20] MEDS: LEVOTHYROXINE 100 MCG TAB PO SCH (06:52)
--- NOTE | 2024-10-20 07:25 | P.PN ---
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 Low back pain 5. Lower extremity weakness Patient seen and examined this morning. Patient is resting comfortably in bed. She does report that she has not been up since the procedure. Patient does report improvement of her lower extremity radiculopathy since the procedure. She states she is looking forward to working with physical therapy today. Surgical incision to the left lateral flank region, dressing is clean dry and intact. Kramer catheter may be removed this morning. Encourage patient to be up in chair for all meals. Discussed with patient if her pain is managed and she is getting around okay that she may possibly be discharged later today versus t omorrow 10/21/24. No acute concerns. Objective - Vital Signs Vital signs: Vital Signs Temp 99 F 10/20/24 02:00 Pulse 89 10/20/24 02:00 Resp 20 10/20/24 02:00 BP 92/44 10/20/24 02:00 Pulse Ox 92 L 10/20/24 02:00 FiO2 Intake & Output 10/19/24 10/20/24 10/20/24 18:59 06:59 18:59 Intake Total 1150 1420 Output Total 625 1450 Balance 525 -30 Weight 95.254 kg 95.254 kg Intake: IV 1150 700 Oral 720 Output: Urine 600 1450 Estimated Blood Loss 25 - Exam Physical Examination General: The patient is awake and alert, in no acute distress Skin: Skin is warm and dry with no obvious rashes or lesions. Incision to the left flank area, dressing is clean dry and intact. Eye: Pupils are equal, round and reactive to light, extra-ocular movements are intact; there is normal conjunctiva bilaterally. Neck: The neck is supple, there is no tenderness and ROM intact. Cardiovascular: There is a regular rate and rhythm. No murmur, rub or gallop is appreciated. Respiratory: Respirations are non-labored, breath sounds are equal. Gastrointestinal: Soft, non-distended, non-tender abdomen. Back: There is no tenderness to palpation in the midline, paralumbar, parathoracic or buttocks region. There is no obvious deformity . Musculoskeletal: ROM limited secondary to pain and stiffness from surgical procedure. Right: Shoulder abduction 5/5, elbow flexors 5/5, wrist dorsiflexors 5/5. finger abductor 5/5, strand forming machine operator 5/5, hip flexor 4/5, knee flexor 4/5, ankle dorsiflexor 5/5, ankle plantarflexion 5/5 and extensor hallucis 5/5. Left: Shoulder abduction 5/5, elbow flexors 5/5, wrist dorsiflexors 5/5. finger abductor 5/5, strand forming machine operator 5/5, hip flexor 4/5, knee flexor 4/5, ankle dorsiflexor 5/5, ankle plantarflexion 5/5 and extensor hallucis 5/5. Neurological: CN 2-12 intact. There are no obvious motor or sensory deficits. Movement and coordination equal and intact. Sensory exam to light touch intact C5-T1 and intact from L2-S1. Reflexes 2/4 in bilateral upper and lower extremities. Negative Hoffmans, babinski, and clonus signs. Psychiatric: Cooperative, appropriate mood & affect, normal judgment. - Labs CBC & Chem 7: 10/20/24 03:18 10/20/24 03:18 Labs: Abnormal Lab Results - Last 24 Hours (Table) 10/19/24 10/19/24 10/20/24 Range/Units 11:54 21:27 03:18 Sodium 135 L (137-145) mmol/L Glucose 180 H (74-99) mg/dL POC Glucose (mg/dL) 120 H 116 H (70-110) mg/dL 10/20/24 Range/Units 06:22 Sodium (137-145) mmol/L Glucose (74-99) mg/dL POC Glucose (mg/dL) 203 H (70-110) mg/dL Assessment and Plan Assessment: Postop day 1: L2-L3 lateral interbody fusion Plan: -Appreciate personnel consultant and team management. -Activity: Ambulate QID, OOB all meals, up and about, limit lifting bending twisting to less than 5 lbs. Use walker or cane if needed for stability. -Daily PT/OT, increase ambulation strength and balance. -Pain control: Adequate at this time -Meds: reviewed -GI ppx: senna, Miralax -DC kramer this morning. -DVT PPX: Aspirin 81mg daily -Hygiene: Maintain incision clean and dry. May change dressing as needed, please document in notes if performed. -Encourage IS 10x/hr -Dispo: Anticipate discharge home with homecare later today versus tomorrow 10/21/24 *I reviewed and discussed this case with my attending Dr. Lyon, whom has r eviewed this chart and films and is in agreement with assessment and plan of care as outlined above. I have personally seen and examined the patient, performed the documentation and the assessment and plan as written. Number of minutes spent on the visit: 15m.
[2024-10-20] MEDS: INSULIN ASPART (NovoLOG) 100 UNIT/ML VIAL SQ SCH (07:33)
[2024-10-20] MEDS: SENNOSIDES-DOCUSATE SODIUM 1 EACH TAB PO SCH (08:30)
[2024-10-20] MEDS: guaiFENesin 600 MG TABLET.ER PO SCH (08:30)
--- NOTE | 2024-10-20 08:52 | CT ---
EXAMINATION TYPE: CT lumbar spine wo con CT DLP: 1838.6 mGycm, Automated exposure control for dose reduction was used. DATE OF EXAM: 10/20/2024 8:33 AM COMPARISON: Fluoroscopic lumbar spine images 10/19/2024, MRI lumbar spine 08/31/2024, lumbosacral spin e radiograph 07/27/2024, CT abdomen and pelvis 02/28/2020. CLINICAL INDICATION:Female, 74 years old with history of s/p L2-L3 lateral interbody fusion; PHH, s/p L-2 L3 lateral interbody fusion TECHNIQUE: Multiple axial images were obtained from the midportion of T11 through the sacroiliac leandra nts. Soft tissue and bone windows in coronal and sagittal planes were obtained and reviewed. Contrast used: none. Oral contrast used: none. FINDINGS: Postsurgical changes from L2-L3 interbody fusion. Hardware appears intact with appropriate alignment. There is associated soft tissue edema and gas. Tracts most prominent along the left iliopsoas muscle . Redemonstration of posterior fusion of L3-S1 with bilateral pedicular screws and rods with laminect damaso changes. Hardware appears intact. There is some surrounding lucencies involving the both pedicle screws at S1. No backing out of the screws identified. Fixed grade 1 anterolisthesis of L4 and L5. No acute fracture. Hardware creates streak artifact which limits evaluation. No gross evidence of signi ficant central canal or neural foraminal stenosis. SI joints are intact bilaterally. Partial visualization of left renal superior pole cyst. Atherosclerotic calcification of the aorta an d its branches. Tubal ligation clips identified. Stable partially visualized hypodense lesions sugges ting a multilocular appearance within the visualized portion of the posterior right hepatic lobe. IMPRESSION: 1. Postsurgical changes from L2-L3 interbody fusion placement. Hardware appears intact with appropria te alignment. No acute fracture. 2. Redemonstration of posterior fusion L3-S1 changes. Hardware appears intact. There is lucency surro unding the bilateral S1 pedicle screws suggesting a component of loosening. No backing out of the scr ews. [facility], , 10/20/2024 8:50 AM
[2024-10-20 11:39] LABS: Glucose,Whole Blood 323 mg/dL (70-110)
--- NOTE | 2024-10-20 14:01 | P.CONS ---
History of Present Illness - Reason for Consult Consult date: 10/20/24 Medical management - History of Present Illness History of present illness; patient is a 74-year-old lady with past medical history significant for lumbar fusion who presented the hospital for elective L2-3 lateral interbody fusion . Patient has been following up outpatient with orthospine for back pain that is radiating down bilateral legs. Patient had an MRI outpatient showing L2-L3 disc bulge with moderate to severe spinal canal stenosis and right neural foraminal stenosis. Patient had rapid progression of symptoms and decision was made to proceed with surgery for which patient was scheduled on 10/19. Postoperatively internal medicine team were consulted for medical management REVIEW OF SYSTEMS: CONSTITUTIONAL: No fever, no malaise, no fatigue. HEENT: No recent visual problems or hearing problems. Denied any sore throat. CARDIOVASCULAR: No chest pain, orthopnea, PND, no palpitations, no syncope. PULMONARY: No shortness of breath, no cough, no hemoptysis. GASTROINTESTINAL: No diarrhea, no nausea, no vomiting, no abdominal pain. NEUROLOGICAL: No headaches, no weakness, no numbness. HEMATOLOGICAL: Denies any bleeding or petechiae. GENITOURINARY: Denies any burning micturition, frequency, or urgency. MUSCULOSKELETAL/RHEUMATOLOGICAL: Complaining of back pain ENDOCRINE: Denies any polyuria or polydipsia. The rest of the 14-point review of systems is negative. PHYSICAL EXAMINATION: GENERAL: The patient is alert and oriented x3, not in any acute distress. Well developed, well nourished. HEENT: Pupils are round and equally reacting to light. EOMI. No scleral icterus. No conjunctival pallor. Normocephalic, atraumatic. No pharyngeal erythema. No thyromegaly. CARDIOVASCULAR: S1 and S2 present. No murmurs, rubs, or gallops. PULMONARY: Chest is clear to auscultation, no wheezing or crackles. ABDOMEN: Soft, nontender, nondistended, normoactive bowel sounds. No palpable organomegaly. MUSCULOSKELETAL: No joint swelling or deformity. EXTREMITIES: No cyanosis, clubbing, or pedal edema. NEUROLOGICAL: Gross neurological examination did not reveal any focal deficits. 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 Continue same treatment. Continue with symptomatic treatment. Resume home medication. Monitor labs and vitals. DVT and GI prophylaxis. Further recommendations as per clinical course of the patient Dictation was produced using [employer] dictation software. please excuse any grammatical, word or spelling errors. Past Medical History Past Medical History: Cancer, Diabetes Mellitus, Hearing Disorder / Deafness, Hyperlipidemia, Hypertension, Liver Disease, Thyroid Disorder Additional Past Medical History / Comment(s): Deaf left ear, hx thyroid cancer- surg & radiation, cysts on liver, non alcoholic fatty liver, urinary urgency, bladder leakage, wears pads/depends, has CGM History of Any Multi-Drug Resistant Organisms: None Reported Past Surgical History: Cholecystectomy, Hysterectomy, Orthopedic Surgery Additional Past Surgical History / Comment(s): Partial hysterectomy, right carpal tunnel surgery, thyroidectomy, josy cataract surg Past Anesthesia/Blood Transfusion Reactions: Previous Problems w/ Anesthesia Additional Past Anesthesia/Blood Transfusion Reaction / Comm: Weakness, dizziness and unsteady gait post anesthesia cholecystectomy. "sister allergic to alot of medications cannot have surgery" Past Psychological History: Anxiety Smoking Status: Former smoker Past Alcohol Use History: None Reported Additional Past Alcohol Use History / Comment(s): Smoked 1 pack per week, X 10 y rs; quit smoking 2 months ago; Past Drug Use History: None Reported - Past Family History Father Family Medical History: Coronary Artery Disease (CAD), CVA/TIA, Myocardial Infarction ([place]) Additional Family Medical History / Comment(s): Heart surgery. Brain Tumor, non cancerous. Mother Family Medical History: Cancer Additional Family Medical History / Comment(s): Lung Disorder. Medications and Allergies Home Medications Medication Instructions Recorded Confirmed Type Insulin Glargine,Hum.rec.anlog 40 unit SQ BID 10/30/19 10/19/24 History [[place] Solostar] Levothyroxine Sodium [Synthroid] 100 mcg PO DAILY 11/15/19 10/19/24 History Insulin Aspart [NovoLOG Flexpen] 10 - 20 units SQ AC-TID PRN 05/03/22 10/19/24 History traMADol HCl [Ultram] 50 mg PO Q4HR PRN 05/03/22 10/19/24 History LORazepam [Lorazepam] 0.5 mg PO DAILY PRN 10/15/24 10/19/24 History Rosuvastatin [Crestor] 20 mg PO HS 10/15/24 10/19/24 History Solifenacin Succinate [Vesicare] 10 mg PO HS 10/15/24 10/19/24 History lisinopriL [Zestril] 2.5 mg PO DAILY 10/15/24 10/19/24 History Allergies Allergy/AdvReac Type Severity Reaction Status Date / Time Penicillins Allergy Anaphylaxis Verified 10/19/24 11:18 Physical Exam Vitals: Vital Signs Temp Pulse Resp BP Pulse Ox 10/20/24 06:58 98.1 F 63 18 163/72 99 10/20/24 02:00 99 F 89 20 92/44 92 L 10/19/24 20:51 97.7 F 82 20 105/65 93 L 10/19/24 20:15 79 16 163/78 98 10/19/24 19:47 78 16 168/70 97 10/19/24 19:32 83 16 162/73 98 10/19/24 19:17 79 16 158/74 97 10/19/24 19:02 77 16 159/72 97 10/19/24 18:48 75 18 144/62 94 L 10/19/24 18:33 72 18 144/62 94 L 10/19/24 18:18 76 16 161/69 96 10/19/24 18:03 77 16 174/72 95 10/19/24 17:48 81 16 196/81 95 10/19/24 17:33 97.6 F 97 12 208/84 97 Intake and Output 10/19/24 10/20/24 10/20/24 22:59 06:59 14:59 Intake Total 1450 720 Output Total 875 1200 150 Balance 575 -480 -150 Intake: IV 1450 Oral 720 Output: Urine 850 1200 150 Estimated Blood Loss 25 Other: Weight 95.254 kg Results CBC & Chem 7: 10/20/24 03:18 10/20/24 03:18 Labs: Abnormal Lab Results - Last 24 Hours (Table) 10/19/24 10/20/24 10/20/24 Range/Units 21:27 03:18 06:22 Sodium 135 L (137-145) mmol/L Glucose 180 H (74-99) mg/dL POC Glucose (mg/dL) 116 H 203 H (70-110) mg/dL 10/20/24 Range/Units 11:37 Sodium (137-145) mmol/L Glucose (74-99) mg/dL POC Glucose (mg/dL) 323 H (70-110) mg/dL
[2024-10-20] MEDS: HYDROcodone/APAP 10-325MG 1 EACH TAB PO PRN (16:24)
[2024-10-20 16:37] LABS: Glucose,Whole Blood 148 mg/dL (70-110)
[2024-10-20 20:51] LABS: Glucose,Whole Blood 231 mg/dL (70-110)
[2024-10-20] MEDS: INSULIN DETEMIR (LEVEMIR) 100 UNIT/ML SYR SQ SCH (20:51)
[2024-10-20] MEDS: TROSPIUM CHLORIDE 20 MG TABLET PO SCH (20:51)
[2024-10-20] MEDS: HYDROcodone/APAP 5-325MG 1 EACH TAB PO PRN (22:19)
[2024-10-21 02:29] VITALS: TEMP 98.2
[2024-10-21 06:36] LABS: Glucose,Whole Blood 141 mg/dL (70-110)
--- NOTE | 2024-10-21 07:19 | P.PN ---
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 Low back pain 5. Lower extremity weakness Patient seen and examined this morning. Patient is sitting at bedside, she had just ambulated to the restroom. Patient is tolerating activity well. Patient does report that her pain is managed on current regimen. She states that she feels safe and ready to be discharged home later today. Surgical incision to the left lateral flank area, dressing is clean dry and intact. Patient states that she does have a rolling walker at home for assistance. No acute concerns at this time. Objective - Vital Signs Vital signs: Vital Signs Temp 98.2 F 10/21/24 01:37 Pulse 76 10/21/24 01:37 Resp 17 10/21/24 01:37 BP 159/67 10/21/24 01:37 Pulse Ox 95 10/21/24 01:37 FiO2 Intake & Output 10/20/24 10/21/24 10/21/24 18:59 06:59 18:59 Output Total 150 1 Balance -150 -1 Output: Urine 150 1 Other: Voiding Method Toilet # Voids 2 - Exam Physical Examination General: The patient is awake and alert, in no acute distress Skin: Skin is warm and dry with no obvious rashes or lesions. Incision to the left flank area, dressing is clean dry and intact. Eye: Pupils are equal, round and reactive to light, extra-ocular movements are intact; there is normal conjunctiva bilaterally. Neck: The neck is supple, there is no tenderness and ROM intact. Cardiovascular: There is a regular rate and rhythm. No murmur, rub or gallop is appreciated. Respiratory: Respirations are non-labored, breath sounds are equal. Gastrointestinal: Soft, non-distended, non-tender abdomen. Back: There is no tenderness to palpation in the midline, paralumbar, parathora cic or buttocks region. There is no obvious deformity . Musculoskeletal: ROM limited secondary to pain and stiffness from surgical procedure. Right: Shoulder abduction 5/5, elbow flexors 5/5, wrist dorsiflexors 5/5. finger abductor 5/5, partition making machine operator 5/5, hip flexor 4/5, knee flex or 4/5, ankle dorsiflexor 5/5, ankle plantarflexion 5/5 and extensor hallucis 5/5. Left: Shoulder abduction 5/5, elbow flexors 5/5, wrist dorsiflexors 5/5. finger abductor 5/5, partition making machine operator 5/5, hip flexor 4/5, knee flexor 4/5, ankle dorsiflexor 5/5, ankle plantarflexion 5/5 and extensor hallucis 5/5. Neurological: CN 2-12 intact. There are no obvious motor or sensory deficits. Movement and coordination equal and intact. Sensory exam to light touch intact C5-T1 and intact from L2-S1. Reflexes 2/4 in bilateral upper and lower extremities. Negative Hoffmans, babinski, and clonus signs. Psychiatric: Cooperative, appropriate mood & affect, normal judgment. - Labs CBC & Chem 7: 10/20/24 03:18 10/20/24 03:18 Labs: Abnormal Lab Results - Last 24 Hours (Table) 10/20/24 10/20/24 10/20/24 Range/Units 11:37 16:35 20:49 POC Glucose (mg/dL) 323 H 148 H 231 H (70-110) mg/dL 10/21/24 Range/Units 06:35 POC Glucose (mg/dL) 141 H (70-110) mg/dL Assessment and Plan Assessment: Postop day 2: L2-L3 lateral interbody fusion Plan: -Appreciate recruiting consultant and team management. -Activity: Ambulate QID, OOB all meals, up and about, limit lifting bending twisting to less than 5 lbs. Use walker or cane if needed for stability. -Daily PT/OT, increase ambulation strength and balance. -Pain control: Adequate at this time -Meds: reviewed -GI ppx: senna, Miralax -DC kramer this morning. -DVT PPX: Aspirin 81mg daily -Hygiene: Maintain incision clean and dry. May change dressing as needed, please document in notes if performed. -Encourage IS 10x/hr -Dispo: Discharge home with homecare later today *I reviewed and discussed this case with my attending Dr. Lyon, whom has reviewed this chart and films and is in agreement with assessment and plan of care as outlined above. I have personally seen and examined the patient, performed the documentation and the assessment and plan as written. Number of minutes spent on the visit: 15m.
--- NOTE | 2024-10-21 07:26 | P.DS ---
Providers Date of admission: 10/19/24 11:02 Expected date of discharge: 10/21/24 Attending physician: Kb Lyon DO Consults: 10/19/24 17:26 Consult Physician Routine Consulting Provider: Jaxon Bucio Consult Reason/Comments: Medical Management Do you want consulting provider notified?: Yes Primary care physician: Raghu Arenas Hospital Course: Hospital Course: The patient was evaluated preoperatively and found to have the diagnosis of L2- L3 adjacent segment disease with stenosis. They underwent appropriate preoperative care and were willing to undergo the intended procedure. They underwent a successful L2-L3 lateral interbody fusion, were recovered appropriately and sent to the floor. While on the floor they worked with physical therapy, occupational therapy and nursing to enhance their recovery experience. Their pain was well controlled through their stay and they were started on appropriate medications, DVT ppx modalities, activity and dietary needs. Daily labs were monitored closely, and transfusions were only used when necessary. Medicine as well as other consulting services have made their input and have helped with our team approach and multidisciplinary care. PT milestones have been met and passed and they have made the recommendation of home with home care for this patient and treating providers agree with this care path. The patient will be discharged home with appropriate medications, instructions and follow-up information and in stable condition. Patient Condition at Discharge: Good Plan - Discharge Summary Discharge Rx Participant: No New Discharge Prescriptions: New Cyclobenzaprine [Flexeril] 5 mg PO TID PRN #30 tablet PRN Reason: Muscle Spasm HYDROcodone/APAP 5-325MG [[place] 5-325] 1 tab PO Q4HR PRN #40 tab PRN Reason: Pain Sulfamethox-Tmp 800-160Mg [Bactrim DS 800-160 mg] 1 tab PO Q12HR #10 tab Naproxen 500 mg PO BID #28 tab Sennosides/Docusate Sodium [Senna Plus 8.6-50 mg Tablet] 2 each PO DAILY PRN #30 tab PRN Reason: Constipation No Action Insulin Glargine,Hum.rec.anlog [Toujeo Solostar] 40 unit SQ BID Levothyroxine Sodium [Synthroid] 100 mcg PO DAILY traMADol HCl [Ultram] 50 mg PO Q4HR PRN PRN Reason: Pain Insulin Aspart [NovoLOG Flexpen] 10 - 20 units SQ AC-TID PRN PRN Reason: Blood Sugar - High Solifenacin Succinate [Vesicare] 10 mg PO HS lisinopriL [Zestril] 2.5 mg PO DAILY LORazepam [Lorazepam] 0.5 mg PO DAILY PRN PRN Reason: Anxiety Rosuvastatin [Crestor] 20 mg PO HS Discharge Medication List Insulin Glargine,Hum.rec.anlog [Toujeo Solostar] 40 unit SQ BID 10/30/19 [History] Levothyroxine Sodium [Synthroid] 100 mcg PO DAILY 11/15/19 [History] Insulin Aspart [NovoLOG Flexpen] 10 - 20 units SQ AC-TID PRN 05/03/22 [History] traMADol HCl [Ultram] 50 mg PO Q4HR PRN 05/03/22 [History] LORazepam [Lorazepam] 0.5 mg PO DAILY PRN 10/15/24 [History] Rosuvastatin [Crestor] 20 mg PO HS 10/15/24 [History] Solifenacin Succinate [Vesicare] 10 mg PO HS 10/15/24 [History] lisinopriL [Zestril] 2.5 mg PO DAILY 10/15/24 [History] Cyclobenzaprine [Flexeril] 5 mg PO TID PRN #30 tablet 10/21/24 [Rx] HYDROcodone/APAP 5-325MG [[place] 5-325] 1 tab PO Q4HR PRN #40 tab 10/21/24 [Rx] Naproxen 500 mg PO BID #28 tab 10/21/24 [Rx] Sennosides/Docusate Sodium [Senna Plus 8.6-50 mg Tablet] 2 each PO DAILY PRN #30 tab 10/21/24 [Rx] Sulfamethox-Tmp 800-160Mg [Bactrim DS 800-160 mg] 1 tab PO Q12HR #10 tab 11/13 [Rx] Follow up Appointment(s)/Referral(s): Raghu Arenas MD [Primary Care Provider] - 1 Week Kb Lyon DO [Doctor of Osteopathic Medicine] - 2 Weeks Activity/Diet/Wound Care/Special Instructions: Spine Discharge and Recovery Instructions Date of Surgery: 10/19/2024 Diagnosis: L2-L3 adjacent segment disease with stenosis Procedure: L2-L3 lateral interbody fusion Medications: See medication list All medication refills should be obtained through your primary care doctor or your clinic spine surgeon. Please discuss prescription refills at your follow up appointment. Do not call the hospital for medication refills. Activity: Encourage ambulation with assist of walker, Up and about 6-8x daily PT/OT daily work on balance, strength and mobility Up in chair with all meals Shower daily Brace: Use brace when up and about, do not wear in bed or shower Dressing: Leave your dressing in place for a total of 3 days post operatively. Then you may remove your dressing and leave open to air. Keep the area clean and if not able to keep area clean, then cover with sterile gauze and tape. Showering: You may shower 3 days after your procedure allowing soap and water to run over incision. Do not scrub. Do not soak. Blot dry. Follow up: Please confirm a follow up appointment with your surgeon 2 weeks post operatively. Please make an appointment to follow up with your PCP in 1-2 weeks after surgery for evaluation '3 phase, 3-week plan' POST OP WEEKS 1-3 1. Lifting/carrying/pushing/pulling limited to less than 5 pounds. 2. Do not sit for longer than 15 minutes at one time. Get up and walk around. Prolonged sitting is NOT advised. If you lay down, see if you can chad erate laying down on you front (belly side) 3. Walk for periods of 15 minutes = 1 mile but no longer; do it multiple times times each day. 4. Ice your low back after activity. POST OP WEEKS 3-6 1. Lifting limited to less than 20 pounds. 2. Do not sit for longer than 30 minutes at a time. Frequently change positions. Use a sit-to stand workstation or take frequent breaks from sitting if you have returned to work. 3. Walk for 30 minutes each day. If possible, do these three or more times a day POST OP WEEKS 6+ At your 6-week appointment we will give you a physical therapy referral to focus on a core stabilization and strengthening program. You should also work on leg & buttock strengthening, hamstring & quadriceps stretching, and continue a low impact aerobic activity program such as swimming, walking, or riding a stationary bicycle. During the initial 6 weeks after your surgery, you are at the highest risk of re-injuring your spine. You should generally avoid BLT's (bending, lifting and twisting combination motions) and follow the above guidelines to reduce the chance of reinjury. You can anticipate post op appointments in our office at approximately 3 weeks and 6 weeks after your surgery. INCISION CARE: If your incision is not draining you do NOT need to cover it with a dressing. Keep your incision clean, dry and intact. In most cases, we apply skin glue, rody or sutures to the incision at the time of surgery. This will be like a crust or have the appearance of a scab and will fall off in time on its own. The stitches or rody need to be removed at 3 weeks post op appointment. You may begin to shower 3 days after surgery (this allows the glue to ov[place] well). However, please avoid scrubbing the incision site or peeling off any of the skin glue. This will ensure optimal healing of your incision. Also, during this time avoid soaking the incision area in water - this includes swimming pools, hot tubs or baths. No ointments, lotions or oils on the incision until your surgeon allows. Leave rody, sutures or glue in place. Neurological dysfunction that comes on suddenly can also be a sign of a stroke. Below some common symptoms of a stroke are listed: B - balance difficulty such as sudden onset walking or leaning to one side - NEW E - eye problem such as sudden double vision or trouble seeing on one side - NEW F - Facial weakness or numbness on one side - NEW A - Arm or leg weakness or numbness on one side - NEW S - Slurred speech or difficulty with word finding - NEW T - Time is BRAIN! Call 911 as soon as you recognize these symptoms Diet: Consume a regular diet rich in vegetables and lean protein such as chicken or fish. You should consume in a ratio of approximately 20% fats|40% carbohydrates|40%protein. Vegetables, sweet potatoes, brown rice or quinoa are examples of good carbohydrates. Chips, white bread, cookies and sweets/sugar are examples of bad carbohydrates. Limit your bad carbs, go wild with good carbs. "Life's Simple 7" Guidelines as per [place] [employer] These will help you reclaim your life after surgery and signal helper in your recovery, keeping in mind your restrictions. (1) Get Active. Physical activity can help people lose weight, control high blood pressure and cholesterol, feel emotionally better, and sleep better. (2) Control Cholesterol. Avoid a diet high in saturated fat, trans fat, & cholesterol. Limit whole milk & cream, ice cream, butter, egg yolks, processed meats (like sausage and hot dogs), and fatty meats. Choose healthy foods that are low in saturated fat, trans fat and cholesterol which include: Fruits and vegetables, fiber rich grain products (like whole grain pasta and brown rice), lean meat such as chicken, fish, nuts, seeds, and legumes. (3) Eat Better. Eat small portions. Shop at the grocery with a list and do not stray from it. Tips for a healthy diet include: Limit sodium intake to less than 1500mg daily, avoid prepackaged, processed, and fast foods, choose a diet rich in fruits, vegetables, and whole grain, high fiber foods, and limit saturated & cholesterol in your diet. (4) Manage Blood Pressure. If you have high blood pressure, you should have a cuff at home so that you can check your blood pressure regularly. Be sure you have a good cuff. An arm one is generally better than a wrist one. Bring the cuff to a doctor's appointment to validate that the measurements that your cuff are taking are accurate. Take your blood pressure twice daily when you are sitting down and relaxing. Record the numbers in a log and bring this log with you to your doctors' appointments. (5) Lose Weight if your BMI is above 25. A healthy BMI is between 19-25. To calculate Your BMI, you may use a Standard BMI Calculator on the NIH BMI website: <www.nhlbi.nih.gov/guidelines/obesity/BMI/bmicalc.htm>. Weigh oneself daily. If you are overweight, set a goal to lose weight. A pound a week loss if needed is a good target. (6) Reduce Blood Sugar. Limit foods and liquids with "added sugars." (Added sugars include sucrose, fructose, glucose, maltose, dextrose, high fructose corn syrup, corn syrup, concentrated fruit juice and honey). (7) Stop Smoking. If you smoke, quitting smoking is one of the best things that you can do for your health. Smoking increases your risk of heart attack, stroke, and peripheral vascular disease, which is a build-up of plaque in your arteries. Please discard all the cigarettes and lighters in your house. Have a plan for what you will do when you have the urge to smoke. Direct and second- hand smoke shortens your life as well as the lives of your family, friends and others around you. For your health and the health of those around you, please consider quitting! Proper Bending Body Mechanics: Maintain a wide stance with one foot slightly in front of the other. Keep your back straight. Bend utilizing the strength in your hips and knees. Do not bend at the waist. Maintain the lifted object at your waist-level close to your body. Avoid lifting weight that causes immediately pain or pain anywhere in the body afterwards. Smoking/Nicotine If there was ever one thing that you could do to increase your overall health, decrease your risk of cardiovascular problems by about 39% the second you make the choice, it is to STOP SMOKING. Your body's most instant gratification is the second you stop smoking. We have all heard the studies, read the articles but it is true, smoking is extremely bad for your overall health, and moreover it is detrimental to your bone health. Nicotine, IN ANY FORM, kills bone cells, prevents your body from healing fractures, and significantly prolongs healing after surgery. In spine surgery specifically, it increases your risk of not healing your bones to create a fusion and increases your risk of having a revision surgery due to this up to 60%. I know it is hard. I know it feels impossible. But there are ways. Take control of your life. We are here to help you through it. And when you are ready, ask us and we can direct you to help if you desire. Use the START Plan to Quit Smoking (please visit the Helpguide.org website listed below for more information): S = Set a quit date. Choose a date within the next 2 weeks, so you have enough time to prepare without losing your motivation to quit. If you mainly smoke at work, quit on the weekend, so you have a few days to adjust to the change. T = Tell family, friends, and co-workers that you plan to quit. Let your friends and family in on your plan to quit smoking and tell them you need their support and encouragement to stop. Look for a quit jennifer who wants to stop smoking as well. You can help each other get through the rough times. A = Anticipate and plan for the challenges you'll face while quitting. Most people who begin smoking again do so within the first 3 months. You can help yourself make it through by preparing ahead for common challenges, such as nicotine withdrawal and cigarette cravings. R = Remove cigarettes and other tobacco products from your home, car, and work. Throw away all your cigarettes (no emergency pack!), lighters, ashtrays, and matches. Wash your clothes and freshen up anything that smells like smoke. Shampoo your car, clean your drapes and carpet, and steam your furniture. T = Talk to your doctor about getting help to quit. Your doctor can prescribe medication to help with withdrawal and suggest other alternatives. If you can't see a doctor, you can get many products over the counter at your local pharmacy or grocery store, including the nicotine patch, nicotine lozenges, and nicotine gum. Resources for Quitting Smoking: <https://www.[place].gov/doc uments/[facility]/Quit_Tobacco_Resources_for_patients_313480_7.pdf> Supplementation: Take recommended dosages of Vitamin D and Calcium to help fortify your bones and help them to heal. See your health maintenance packet for dosages and recommended levels. DVT/VTE prophylaxis: You will be given compression stockings from the hospital. Wear these daily for the first two weeks after surgery. You may take them off at night. You may be prescribed a medication to help thin your blood. Take this as directed. If you are not prescribed this medication, early and frequent ambulation has been shown to be the best prophylaxis to deep vein thrombosis and sequelae related to this event. Discharge Disposition: HOME WITH HOME HEALTH SERVICES
[2024-10-21 07:48] VITALS: BP 150/72; PULSE 69
[2024-10-21 11:40] LABS: Glucose,Whole Blood 165 mg/dL (70-110)
--- NOTE | 2024-10-21 13:22 | P.PN ---
Subjective Progress Note Date: 10/21/24 patient is a 74-year-old lady with past medical history significant for lumbar fusion who presented the hospital for elective L2-3 lateral interbody fusion . Patient has been following up outpatient with orthospine for back pain that is radiating down bilateral legs. Patient had an MRI outpatient showing L2-L3 disc bulge with moderate to severe spinal canal stenosis and right neural foraminal stenosis. Patient had rapid progression of symptoms and decision was made to proceed with surgery for which patient was scheduled on 10/19. Postoperatively internal medicine team were consulted for medical management 10/21. Patient seen and examined. States she feels much better. Patient is keen to be discharged home today REVIEW OF SYSTEMS: CONSTITUTIONAL: No fever, no malaise,. CARDIOVASCULAR: No chest pain, no palpitations, no syncope. PULMONARY: No shortness of breath, no cough, GASTROINTESTINAL: No diarrhea, no nausea, no vomiting, no abdominal pain. NEUROLOGICAL: No headaches, no weakness, PHYSICAL EXAMINATION: GENERAL: The patient is alert and oriented x3, not in any acute distress. Well developed, well nourished. HEENT: Pupils are round and equally reacting to light. EOMI. No scleral icterus. No conjunctival pallor. Normocephalic, atraumatic. No pharyngeal erythema. No thyromegaly. CARDIOVASCULAR: S1 and S2 present. No murmurs, rubs, or gallops. PULMONARY: Chest is clear to auscultation, no wheezing or crackles. ABDOMEN: Soft, nontender, nondistended, normoactive bowel sounds. No palpable organomegaly. MUSCULOSKELETAL: No joint swelling or deformity. EXTREMITIES: No cyanosis, clubbing, or pedal edema. NEUROLOGICAL: Gross neurological examination did not reveal any focal deficits. 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 Continue same treatment. Continue with symptomatic treatment. Resume home medication. Monitor labs and vitals. DVT and GI prophylaxis. Further recommendations as per clinical course of the patient Dictation was produced using [employer] dictation software. please excuse any grammatical, word or spelling errors. Objective - Vital Signs Vital signs: Vital Signs Temp 98.2 F 10/21/24 07:12 Pulse 69 10/21/24 07:12 Resp 46 H 10/21/24 07:12 BP 150/72 10/21/24 07:12 Pulse Ox 95 10/21/24 07:12 FiO2 Intake & Output 10/20/24 10/21/24 10/21/24 18:59 06:59 18:59 Output Total 150 1 Balance -150 -1 Output: Urine 150 1 Other: Voiding Method Toilet # Voids 2 2 - Labs CBC & Chem 7: 10/20/24 03:18 10/20/24 03:18 Labs: Abnormal Lab Results - Last 24 Hours (Table) 10/20/24 10/20/24 10/21/24 Range/Units 16:35 20:49 06:35 POC Glucose (mg/dL) 148 H 231 H 141 H (70-110) mg/dL 10/21/24 Range/Units 11:39 POC Glucose (mg/dL) 165 H (70-110) mg/dL
[2024-10-21 13:49] VITALS: RESP 16
== END 2024-10-21 13:11 | disposition home health service (06) | DRG 451 ==
LOC: 2ORMAIN 10-19 11:02 → 4SSUR 10-19 18:26
PROVIDERS: ADMIT Orthopaedic Surgery; ATTEND Orthopaedic Surgery
PROC: 0SG00A0 Fusion of Lumbar Vertebral Joint with Interbody Fusion Device, Anterior Approach, Anterior Column, Open Approach (ICD-10-PCS; principal; 2024-10-19 12:30)
DX: M48.061 Spinal stenosis, lumbar region without neurogenic claudication (principal); E11.9 Type 2 diabetes mellitus without complications; E89.0 Postprocedural hypothyroidism; I10 Essential (primary) hypertension; Z68.36 Body mass index [BMI] 36.0-36.9, adult; Z79.4 Long term (current) use of insulin; R29.6 Repeated falls; R32 Unspecified urinary incontinence; E78.5 Hyperlipidemia, unspecified; H91.92 Unspecified hearing loss, left ear; Z87.891 Personal history of nicotine dependence; Z79.890 Hormone replacement therapy; Z91.81 History of falling; Z79.899 Other long term (current) drug therapy; Z85.850 Personal history of malignant neoplasm of thyroid
CPT/HCPCS: 72100; 72131; 80048; 85025; 86850; 86900; 86901

== ENCOUNTER → 2025-04-11 | Outpatient (CLI) | payer MEDICARE ==
--- NOTE | 2025-04-11 23:26 | XR ---
EXAMINATION TYPE: XR cervical spine w flex/ext DATE OF EXAM: 04/11/2025 11:07 AM COMPARISON: None. CLINICAL INDICATION: Female, 74 years old with history of M54.2 Cervicalgia, pain TECHNIQUE: 5 view(s) obtained. Additional flexion and extension sagittal performed. FINDINGS: Prevertebral space is normal. Vertebral body alignment body heights. There is loss of disc height C5- 6 and C6-7. Posterior spinal lamellar line is. Full body alignment appears preserved. Flexion and extension views. The odontoid is limited with over lying occiput. IMPRESSION: 1. No subluxation through flexion and extension and neutral positioning. 2. Degenerative disc changes C5-6 C6-7. [facility], , 04/11/2025 11:24 PM
== END | disposition home or self-care (01) ==
LOC: RADXRMAIN 10:39
PROVIDERS: ATTEND Orthopaedic Surgery
DX: M50.322 Other cervical disc degeneration at C5-C6 level (principal)
CPT/HCPCS: 72052